=== PATIENT | female | born 1935 | race Caucasian/White ===

== ENCOUNTER 2017-09-19 13:03 | Inpatient (IN) ==
[2017-09-19] MEDS ORDERED: ALBUTEROL/IPRATROPIUM 2.5mg-0.5mg/3ml NEB AEROSOL ONE (13:34)
--- NOTE | 2017-09-19 13:38 | Emergency Department Report ---
SOB HPI - General Chief Complaint: Upper Respiratory Infection Stated Complaint: diff breathing and cough Time Seen by Provider: 09/19/17 13:23 Source: patient Mode of arrival: wheelchair Limitations: no limitations - History of Present Illness Pt presents with a cough and SOA that has increased over the last week. Pt saw her PCP last week and was given a Z pack which she completed. Pt is continuing to cough however is not able to get anything up. She denies recent chest pain, pedal edema, fever or chills. Pt was diagnosed with COPD about a year ago and uses a daily inhaler which she reports has not helped much. She comes to the ER from her PCP office who reported a "boderline low" SpO2. Initial SpO2 her was in the 60s on RA. Pt does not use supplemental O2 at home. MD Complaint: shortness of breath, cough Onset (ago): week(s) Severity: moderate Consistency/Duration: constant Relieving factors: nothing Exacerbating factors: exertion, movement, coughing Known history of: COPD Associated symptoms: denies other symptoms Treatment prior to arrival: bronchodilator (antibiotics) - Related Data Home oxygen amount: none Home Medications Medication Instructions Recorded Confirmed Amlodipine Besylate 5 mg PO DAILY #0 01/16/15 09/19/17 buPROPion HCl [Bupropion Xl] 150 mg PO BID #0 01/16/15 09/19/17 Carboxymethylcell/Hypromellose 1 drop BOTH EYES DAILY #0 10/24/15 09/19/17 [Genteal Gel Drops] L. Acidophilus/Pectin, [place] 1 tab PO DAILY #0 tab 10/24/15 09/19/17 [Acidophilus Caplet] Albuterol Sulfate [Ventolin Hfa] 2 puff ORAL INH Q4-6H PRN #0 01/05/16 09/19/17 inhaler Azithromycin [Azithromycin] 250 mg PO DAILY 09/19/17 09/19/17 Biotin 5,000 mcg PO DAILY 09/19/17 09/19/17 Calcium Carb/Mag Carb/Folic AC 1 each PO DAILY 09/19/17 09/19/17 [Magnebind 400 Rx Tablet] Cholecalciferol [Vit. D-3] 1,000 unit PO DAILY 09/19/17 09/19/17 Folic Acid 400 mcg PO DAILY 09/19/17 09/19/17 Levothyroxine Sodium 100 mcg PO DAILY 09/19/17 09/19/17 Loratadine 10 mg PO DAILY 09/19/17 09/19/17 Mometasone/Formoterol 100/5 2 puff INH BID 09/19/17 09/19/17 [DULERA 100/5mcg INHALER] Previous Rx's Medication Instructions Recorded Lisinopril 40 mg PO DAILY #30 tab 10/28/15 Allergies Allergy/AdvReac Type Severity Reaction Status Date / Time cephalexin Allergy Unknown Verified 09/19/17 13:27 dextromethorphan Allergy Unknown Verified 09/19/17 13:27 Review of Systems Constitutional: Reports: as per HPI Cardiovascular: Reports: as per HPI Respiratory: Reports: as per HPI PFSH Patient Stated Medical History Hypertension Yes Chronic Obstructive Pulmonary Yes Disease (COPD) Depression Yes Substance Use Disorder No Physical Exam - Limitations Limitations: no limitations - General General appearance: alert, in no apparent distress - Normal Exams: Head:: Normocephalic without trauma Eyes:: Pupils are PERRLA w/ EOMI Neck:: Full range of motion, without adenopathy Cardiovascular:: Regular rate and rhythm, without murmur or gallop, Pulses 2+ all extremities, capillary refill, <2 seconds all extremities Abdomen:: Bowel sounds positive, soft, non-tender, non-distended Musculoskeletal:: No tenderness, or deformity noted, good range of motion, all extremities Integumentary:: No rashes Neurological:: Patient is alert, and oriented, cranial nerves, motor/sensory/ cerebellar, exams w/o gross deficits, to observation Psychiatric:: Patient exhibits, appropriate attention, emotion and affect - Expanded Respiratory Exam Location: Left: decreased breath sounds, Right: decreased breath sounds, Upper: decreased breath sounds, Lower: decreased breath sounds Course Vital Signs Temperature 97.6 F 09/19/17 13:05 Pulse Rate 98 09/19/17 13:05 Respiratory Rate 20 09/19/17 13:05 Blood Pressure 176/76 H 09/19/17 13:05 Pulse Oximetry 62 L 09/19/17 13:05 Temperature 97.6 F 09/19/17 13:05 Pulse Rate 74 09/19/17 14:25 Respiratory Rate 12 09/19/17 14:42 Blood Pressure 124/66 09/19/17 14:25 Pulse Oximetry 96 09/19/17 14:42 Shortness of Breath/Dyspnea - [facility] Narrative Medical decision making narrative: During stay pt noted she was having some chest pressure. NTG was given with relief. Troponin resulted normal. EKG reviewed and discussed with Dr Ramirez and there were no new significant changes. All lab and X ray reviewed. Attempted to ween pt from O2 without success pt dropping to mid 80s on RA while at rest. Hospitalist called for admission. Admission discussed with pt and family who verbalize understanding - Differential Diagnosis Likely: acute exacerbation of chronic obstructive airways disease, congestive heart failure, community acquired pneumonia, pulmonary embolism - Lab Data Attestation: I reviewed the patient's lab results. Result diagrams: 09/19/17 13:59 09/19/17 13:59 Lab Results 09/19/17 09/19/17 09/19/17 Range/Units 13:59 13:59 13:59 WBC 7.4 (4.5-11.0) T/MM3 RBC 4.60 (4.00-5.20) M/MM3 Hgb 14.2 (12-16) GM/DL Hct 42.1 (36-46) % MCV 91.5 (80-100) UM3 MCH 30.9 (26-34) UUG MCHC 33.7 (31-37) GM/DL RDW Std Deviation 40.0 (36.9-50.2) FL Plt Count 238 (130-400) T/MM3 MPV 9.6 (9.4-12.4) UM3 Immature Gran % (Auto) 0.3 (0.0-0.5) % Neut % (Auto) 78.1 H (33-66) % Lymph % (Auto) 14.3 L (23-45) % [place] % (Auto) 6.9 (0-9.0) % Eos % (Auto) 0.1 (0-4) % Baso % (Auto) 0.3 (0-2) % Neut # (Auto) 5.8 (1.8-7.7) T/MM3 Lymph # (Auto) 1.1 (1-4.8) T/MM3 [place] # (Auto) 0.5 (0-0.8) T/MM3 Eos # (Auto) 0.0 (0-0.5) T/MM3 Baso # (Auto) 0.0 (0-0.2) T/MM3 Abs Immat Gran (auto) 0.02 (0.00-0.03) T/MM3 D-Dimer 181 (0-230) NG/ML Turbidity < 20 (0-20) Sodium 131 L (134-144) MEQ/L Potassium 4.1 (3.6-5) MEQ/L Chloride 87 L (98-107) MEQ/L Carbon Dioxide 35 H (22-30) MEQ/L Anion Gap 9 (5-15) MEQ/L BUN 19.0 H (7-17) MG/DL Creatinine 0.6 L (0.7-1.2) MG/DL GFR Calculation 96 BUN/Creatinine Ratio 32 H (6-26) RATIO Glucose 130 H (65-110) MG/DL Calculated Osmolality 257 L (261-280) MOSM/KG Calcium 9.2 (8.4-10.2) MG/DL Total Bilirubin 0.40 (0.20-1.30) MG/DL Icterus Index < 2 (0-7) AST 49 H (14-36) U/L ALT 57 H (9-52) U/L Alkaline Phosphatase 49 (38-126) U/L Troponin I < 0.012 (0-0.12) ng/ml B-Natriuretic Peptide 249 H (0-175) pg/mL Total Protein 7.2 (6.3-8.2) G/DL Albumin 4.1 (3.5-5.0) G/DL Globulin 3.1 (2.4-3.6) G/DL Albumin/Globulin Ratio 1.3 (1.1-2.2) RATIO Specimen Hemolysis < 15 (0-25) - Radiology Data Attestation: I reviewed the patient's radiology results. (per Dr Elliott read) - EKG Data EKG #1 EKG attestation: Yes: I reviewed and interpreted this EKG. EKG shows normal: sinus rhythm Rate: normal Rhythm: NSR [place] [facility]/QRS: LBBB When compared to previous EKG there are: no significant changes Interpretation: unchanged when compared to prior tracing (date) (discussed with Dr Ramirez per Dr Marie) Disposition Clinical Impression: COPD exacerbation Disposition: [address] [facility] Acute Care Condition: Improved Prescriptions: No Action Amlodipine Besylate 5 mg PO DAILY #0 L. Acidophilus/Pectin, [place] [Acidophilus Caplet] 1 tab PO DAILY #0 tab Carboxymethylcell/Hypromellose [Genteal Gel Drops] 1 drop BOTH EYES DAILY #0 Lisinopril 40 mg PO DAILY #30 tab Cholecalciferol [Vit. D-3] 1,000 unit PO DAILY Mometasone/Formoterol 100/5 [DULERA 100/5mcg INHALER] 2 puff INH BID Levothyroxine Sodium 100 mcg PO DAILY Azithromycin [Azithromycin] 250 mg PO DAILY Folic Acid 400 mcg PO DAILY Biotin 5,000 mcg PO DAILY Loratadine 10 mg PO DAILY buPROPion HCl [Bupropion Xl] 150 mg PO BID #0 Albuterol Sulfate [Ventolin Hfa] 2 puff ORAL INH Q4-6H PRN #0 inhaler PRN Reason: SHORTNESS OF AIR Calcium Carb/Mag Carb/Folic AC [Magnebind 400 Rx Tablet] 1 each PO DAILY Referrals: Reba Harris MD [Family Provider] - Time of Disposition: 16:09 - Seen By: midlevel
[2017-09-19] MEDS ORDERED: ASPIRIN 325 MG TABLET PO ONE (13:55)
[2017-09-19] MEDS ORDERED: NITROGLYCERIN 0.4 MG SUBLINGUAL TABLET SL ONE (13:56)
--- NOTE | 2017-09-19 14:30 | XRay Report ---
EXAM: XR chest 2V HISTORY: cough, hx COPD, low SpO2 COMPARISON: Prior chest x-ray dated 10/24/2015 FINDINGS: The heart is not enlarged and the mediastinum is not widened. The trachea is midline. The pulmonary vascularity is normal. The lung alejandro are hyperinflated with flattening of the hemidiaphragms There are mild increased interstitial markings that appear chronic but no acute consolidating infiltrates are seen and the costophrenic angles are clear. There is no evidence of a pneumothorax. The bony thorax shows mild to moderate degenerative changes in the mildly kyphotic dorsal spine. Postsurgical changes are seen under the right hemidiaphragm. IMPRESSION: 1. Chronic emphysematous lung changes. 2. No acute focal infiltrates. .
--- OUTSIDE RECORDS SUMMARY | 2017-09-19 14:47 | External Medical Summary | Continuity of Care Document ---
:1935 Author Organization [facility] Address [address] [place], [place] [id number] Phone Care Team Providers Name Role Phone Reba Harris MD Unavailable Unavailable Allergies, Adverse Reactions, Alerts Substance Reaction Severity Status CEPHALEXIN MONOHYDRATE Unknown Active DEXTROMETHORPHAN HBR Unknown Active Medications Medication Instructions Dosage Effective Dates Status Comments (start - stop) lisinopril 40 mg take 1 tablet by 40 MG - Active tablet oral route every day amlodipine 5 mg take 1 tablet by 5 MG - Active tablet oral route every day levothyroxine 100 mcg take 1 tablet by 100 MCG - Active tablet oral route every day bupropion HCl SR 150 take 1 tablet by 150 MG - Active mg tablet,12 hr oral route 2 times sustained-release every day alendronate 70 mg take 1 tablet by 70 MG - Active tablet oral route every week in the morning, at least 30 min before first food, beverage, or medication of day Dulera 100 mcg-5 inhale 2 puff by Not Available - Active mcg/actuation HFA inhalation route 2 aerosol inhaler times every day in the morning and evening Ventolin HFA 90 inhale 2 puff by Not Available - Active mcg/actuation aerosol Inhalation route inhaler every 4 - 6 hours as needed Vitamin D3 5,000 unit take 1 by Oral Not Available - Active tablet route every day Acidophilus capsule - Active GenTeal Gel 0.25 - Active %-0.3 % eye liquid gel drops biotin 5,000 mcg - Active disintegrating tablet calcium carbonate 500 take 1 by Oral Not Available - Active mg calcium (1,250 mg) route every day tablet Problems Condition Effective Dates (start - stop) Clinical Status Essential (primary) hypertension Other ovarian cyst, right side Hypertension - Active Chronic Obstructive Pulmonary Disease Active Depression Active Hyperlipidemia Active Simple Ovarian Cyst Active Procedures Procedure Date Unknown Results Test Name Date and Time Measure Units Reference Range Abnormal Flag Comments Unknown Advance Directives Directive Yes / No Effective Date File Name Unknown Encounters Encounter Practice Location Reason(s) Diagnoses Date Provider Care Team Description For Visit Members Pao Leach Jun-2 Kash [facility] [address] [place], [address], , [place] [address], [place], [id number], [place], [id number] tel: , [facility] tel: [phone] Pao Leach Essential Kash Referring In Wom[facility] (primary) [place]. 700 Provider: marlon [place]Other 7 [facility] Box ovarian cyst, [address], right side , [place], [facility] [id number], [place], [place] [address], [id number] [place], tel: , [facility], tel: [phone] tel:[phone] Family History Family Member Diagnosis Age At Onset Father Colon Cancer Mother Brain Stem Hemm Immunizations Vaccine Date Status Comments Unknown Payers Payer name Insurance type Covered republican ID Authorization(s) Medicare MB [id number] [facility] Plan 65 BL [id number] Social History Type Description Quantity Date Captured Unknown Vital Signs Date / Height Weight BMI Pulse Blood Temperature Respiratory Body Head BMI Time: Rate Pressure Rate Surface Circumference percentile Area Unknown Chief Complaint And Reason For Visit Unknown Chief Complaint And Reason For Visit Reason For Referral Reason For Referral Unknown Plan Of Care Date Type Action Status Unknown. Date Type Problem Goal Intervention Status Start Date Unknown. History Of Present Illness Encounter Date Complaint History Of Present Illness This patient has no known history of present illness Functional Status Encounter Date Functional Assessment Cognitive Assessment Unknown Medications Administered Medication Instructions Dosage Effective Dates (start - stop) Status Comments Drug Treatment Unknown Instructions Date Instruction Additional Information Unknown
--- OUTSIDE RECORDS SUMMARY | 2017-09-19 14:47 | External Medical Summary | Continuity of Care Document ---
:1935 Author Organization [facility] Address [address] [place], [place] [id number] Phone Care Team Providers Name Role Phone [...] Members Pao Leach Jun-2 [facility] [address] [place], Medical [address], , [place] [address], [place], [id number], [place], [id number] tel: , [facility] tel: [phone] Pao Leach Essential Kash Referring In Womens (primary) [place]. 700 Provider: marlon CordobaOther 7 [facility] Box ovarian cyst, [address], right side , [place], [facility], [facility] [id number], [place], [place] [address], [id number] [place], tel: , [facility], tel: [phone]. [phone] tel:[phone] Family History Family Member Diagnosis Age At Onset Father Colon Cancer Mother Brain Stem Hemm Immunizations Vaccine Date Status Comments Unknown Payers Payer name Insurance type Covered libertarian ID Authorization(s) Medicare MB [id number] [facility] Plan 65 BL [id number] Social History Type Description Quantity Date Captured [...]
--- OUTSIDE RECORDS SUMMARY | 2017-09-19 14:47 | External Medical Summary | Continuity of Care Document ---
:1935 Author Organization [facility] Address [address] [place], [place] [id number] Phone Care Team Providers Name Role Phone [...] Simple Ovarian Cyst Active Procedures Procedure Date Office/outpatient visit,thelma segura Results Test Name Date and Time Measure Units Reference Range Abnormal Flag Comments Unknown Advance Directives Directive Yes / No Effective Date File Name Unknown Encounters Encounter Practice Location Reason(s) Diagnoses Date Provider Care Team Description For Visit Members Office/outpat Associates [place] Essential Kash Referring ient In [facility] (primary) [place]. 700 Provider: visit,[facility] MARCOS, hypertensionOther 7 Medical [place] [address] ovarian cyst, [address], right side , [place] [address] [place], Medical [place], [facility] [id number], [place], [address], [id number] [place], tel: , . [place], [id number] tel: [phone]. [phone] tel:[phone] Family History Family Member Diagnosis Age At Onset Father Colon Cancer Mother Brain Stem Hemm Immunizations Vaccine Date Status Comments Unknown Payers Payer name Insurance type Covered constitution party ID Authorization(s) Medicare MB [id number] [facility] Plan 65 BL [id number] Social History Type Description Quantity Date Captured Alcohol Use Details Unknown Caffeine Use Details Unknown Tobacco Use Status Smoking Status Former smoker Smoking Tobacco Use Cigarette: Years Used 10 Cigarette: 0.5 Cigarettes per day, Pack Year: 0.25 Details Vital Signs Date / Height Weight BMI Pulse Blood Temperature Respiratory Body Head BMI Time: Rate Pressure Rate Surface Circumference percentile Area 64.50 114.60 . in lbs 7 1:08 kg/m PM eter (2) Chief Complaint And Reason For Visit Unknown [...]
--- OUTSIDE RECORDS SUMMARY | 2017-09-19 14:47 | External Medical Summary | Continuity of Care Document ---
:1935 Author Organization [facility] Support Name Relationship Address Phone JIM JAY DO Unavailable [address] Unavailable [address] [place] [address] FELICITY RODRÍGUEZ MD Unavailable [facility] Unavailable [address] [place] [address] [place] [address] JAMES BUTCHER Unavailable [address] [place] [address] Insurance Providers Payer Name Policy Number Subscriber Name Relationship Medicare [id number] Tiffany Valentino 19 Self Blue [employer] Select Plan 65 [id number] Tiffany Valentino 18 Self Advance Directives Directive Response Recorded Date/Time Ordered Resuscitation Status Full Code, unverified 01/16/15 3:32pm Resuscitation Documents on File No 01/16/15 3:15pm Problems No known problems or medical conditions. Medications Medication Dose Route Sig Days/Qty Instructions Order Discontinued Status Date Date [Azythromycin] 09/18/12 Discontinu 09 ed Alendronate 1 Tab PO WEEKLY 09/18/12 Discontinu Sodium 09 ed Amlodipine 1 Tab PO DAILY 09/25/12 Discontinu Besylate 09 ed Sertraline Hcl 50 Mg PO DAILY 09/25/12 Discontinu 12 ed Hydrochlorothia 25 Mg PO DAILY 09/25/12 Discontinu zide 12 ed Potassium 10 PO DAILY 09/25/12 Discontinu Chloride Meq 12 ed Pravastatin 40 Mg PO DAILY 09/25/12 Discontinu Sodium 12 ed Lactobacillus 1 Cap PO DAILY 09/25/12 Discontinu Acidophilus 12 ed Alendronate 70 Mg PO WEEKLY 01/16/ Active Sodium 15 LA/Lactobac 1 Cap PO DAILY 01/16/ Active Saliv/Bb/S.ther 15 mop Amlodipine 5 Mg PO DAILY 01/16/ Active Besylate 15 Multivitamin 1 Tab PO DAILY 04/09/ Active 15 Levothyroxine 1 Tab PO BEFORE Once daily Sodium BREAKFAS before 15 T breakfast Cholecalciferol 1 Tab PO DAILY (Vitamin D3) 15 Bupropion HCl 150 PO TWICE A 01/16/ Mg DAY 15 Furosemide 10 Mg PO DAILY 15 Calcium Carb 1 Tab PO DAILY Active & 15 Cit/Vitamin D3 Lisinopril 1 Tab PO DAILY 15 Melatonin/Pyrid 5 Mg PO BEDTIME oxine HCl (B6) 15 Social History Social History Problem Response Recorded Date/Time Chewing Tobacco Status No 01/17/2015 8:05am Hx Substance Use No 01/17/2015 8:05am Hx Alcohol Use No 01/17/2015 8:05am Has the pt used tobacco in the last 12 months No 01/17/2015 8:05am Query Response Start Date Stop Date Smoking Status Former smoker Hospital Discharge Instructions No hospital discharge instructions. Plan of Care No plan of care. Functional Status No functional status results. Allergies, Adverse Reactions, Alerts Allergen Type Severity Reaction Status Last Updated Cephalexin Allergy Unknown Active 01/16/15 Dextromethorphan Allergy Unknown Active 01/16/15 Immunizations Name Given Type Hx Influenza Vaccination Y FALL 2013 Historical Hx Pneumococcal Vaccination Y WITHIN PAST 5 YEARS Historical Hx Influenza Vaccination Y FALL 2013 Historical Vital Signs Acute Vital Signs Vital Response Date/Time Temperature (Fahrenheit) 97.2 deg F (96.8 - 99.1) Temperature (Calculated Celsius) 36.47156 degrees C (36.0 - 37.3) Temperature Source Temporal Pulse Rate (adult) 70 bpm (60 - 100) Respiratory Rate 20 breaths/min (10 - 20) O2 Sat by Pulse Oximetry 97 % (90 - 100) Oxygen Delivery Method Room Air Blood Pressure 140/71 mm Hg Blood Pressure Source Automatic Cuff Height 5 ft 3.75 in Weight 113 lb Body Mass Index 19.0 kg/m^2 Results Test Source Date Result Interp. Ref. Comments Range Alanine September 46 U/L N 9-52 Aminotransferase 2011 (ALT/SGPT) 5:02am Albumin September 2.9 G/DL L 3.5-5.0 2011 5:02am Albumin/Globulin September 1.3 RATIO N 1.1-2.2 Ratio 2011 5:02am Alkaline Kana 46 U/L N 38-126 Phosphatase 2011 5:02am Anion Gap Kana 6 MEQ/L N 5-15 CALL 2011 [id number] 5:40am Aspartate Amino Kana 45 U/L H 14-36 Transf (AST/SGOT) 2011 5:02am BUN/Creatinine September 16 RATIO N 6-26 CALL Ratio 2011 [id number] 5:40am Basophils # (Auto) Kana 0.0 T/MM3 N 0-0.2 2011 4:43am Basophils # Kana 0.1 T/MM3 N 0-0.2 (Manual) 2011 4:50am Basophils % Kana 1.0 % N 0-2 (Manual) 2011 4:50am Basophils (%) Kana 0.6 % N 0-2 (Auto) 2011 4:43am Blood Urea Nitrogen September 8.0 MG/DL N 7-17 CALL 2011 [id number] 5:40am Calcium Level September 8.7 MG/DL N 8.4-10. CALL 2011 2 [id number] 5:40am Calculated Kana 253 MOSM/KG L 261-280 CALL Osmolality 2011 [id number] 5:40am Carbon Dioxide Kana 34 MEQ/L H 22-30 CALL Level 2011 [id number] 5:40am Chloride Level Kana 92 MEQ/L L 98-107 CALL 2011 [id number] 5:40am Conjugated Kana 0.00 MG/DL N 0.00-0. Bilirubin 2011 30 8:00am Creatinine September 0.5 MG/DL L 0.7-1.2 CALL 2011 [id number] 5:40am Eosinophils # Kana 0.5 T/MM3 N 0-0.5 (Auto) 2011 4:43am Eosinophils # Kana 0.2 T/MM3 N 0-0.5 (Manual) 2011 4:50am Eosinophils % Kana 3.0 % N 0-4 (Manual) 2011 4:50am Eosinophils (%) September 8.0 % H 0-4 (Auto) 2011 4:43am Globulin Kana 2.3 G/DL L 2.4-3.6 2011 5:02am Glucose Level September 91 MG/DL N 65-110 CALL 2011 [id number] 5:40am Hematocrit Kana 37.6 % N 36-46 2011 4:43am Hemoglobin Kana 13.2 GM/DL N 12-16 2011 4:43am Lymphocytes # Kana 1.0 T/MM3 N 1-4.8 (Auto) 2011 4:43am Lymphocytes # Kana 1.6 T/MM3 N 1-4.8 (Manual) 2011 4:50am Lymphocytes % Kana 27.0 % N 23-45 (Manual) 2011 4:50am Lymphocytes (%) September 16.1 % L 23-45 (Auto) 2011 4:43am Magnesium Level September 1.9 MG/DL N 1.6-2.3 2011 4:42am Mean Corpuscular Kana 31.4 UUG N 26-34 Hemoglobin 2011 4:43am Mean Corpuscular Kana 35.1 GM/DL N 31-37 Hemoglobin Concent 2011 4:43am Mean Corpuscular Kana 89.5 UM3 N 80-100 Volume 2011 4:43am Mean Platelet Kana 9.5 UM3 N 9.4-12. Volume 2011 4 4:43am Monocytes # (Auto) Kana 0.6 T/MM3 N 0-0.8 2011 4:43am Monocytes # Kana 0.5 T/MM3 N 0-0.8 (Manual) 2011 4:50am Monocytes % September 9.0 % N 0-9.0 (Manual) 2011 4:50am Monocytes (%) September 8.8 % N 0-9.0 (Auto) 2011 4:43am Neutrophils # September 4.3 T/MM3 N 1.8-7.7 (Auto) 2011 4:43am Neutrophils # Kana 3.7 T/MM3 N 1.8-7.7 (Manual) 2011 4:50am Neutrophils % Kana 60.0 % N 33-66 (Manual) 2011 4:50am Neutrophils (%) September 66.2 % H 33-66 (Auto) 2011 4:43am Platelet Count September 196 T/MM3 N 130-400 2011 4:43am Potassium Level September 3.7 MEQ/L N 3.6-5 CALL 2011 [id number] 5:40am RDW Standard September 41.3 FL N 36.9-50 Deviation 2011 .2 4:43am Red Blood Count September 4.20 M/MM3 N 4.00-5. 142011 4:43am Sodium Level September 132 MEQ/L L 134-144 CALL 2011 [id number] 5:40am Thyroid Stimulating September 7.96 MIU/L H 0.47-4. Hormone (TSH) 2011 8:00am Total Bilirubin September 0.50 MG/DL N 0.20-1. 132011 5:02am Total Protein September 5.2 G/DL L 6.3-8.2 2011 5:02am Troponin I September < 0.012 ng/ml 0-0.12 2011 8:00am Unconjugated September 0.80 MG/DL N 0.00-1. Bilirubin 2011 8:00am Urine Amorphous September Many - Has specimen Phosphates 2011 been 8:40am collected/obta ined? Y Urine Bacteria September 09+ H - 2011 1:15pm Urine Bilirubin September Negative - 2011 1:15pm Urine Blood September 4+ H - 2011 1:15pm Urine Collection Kana Voided - Type 2011 1:15pm Urine Color September Yellow - 2011 1:15pm Urine Culture September Cult reflexed - Indicated 2011 &setup 1:15pm Urine Glucose (UA) September Negative - 2011 1:15pm Urine Hyaline Casts September 0-1 /LPF - Has specimen 2011 been 8:40am collected/obta ined? Y Urine Ketones September Negative - 2011 1:15pm Urine Leukocyte September 2+ H - Esterase 2011 1:15pm Urine Nitrite September Negative - 2011 1:15pm Urine Protein September Trace H - 2011 1:15pm Urine RBC September 30-50 /HPF H - 2011 1:15pm Urine Specific Kana 1.020 - [place] 2011 1:15pm Urine Squamous September Few - Has specimen Epithelial Cells 2011 been 8:40am collected/obta ined? Y Urine Turbidity September Slt cldy - 2011 1:15pm Urine Urobilinogen September Normal EU/DL - 2011 1:15pm Urine WBC September 20-30 /HPF H - 2011 1:15pm Urine pH September 6.0 - 2011 1:15pm Vitamin B12 Level September > 1000 PG/ML H 239-931 2011 6:00am White Blood Count September 6.5 T/MM3 N 4.5-11. 14, 2011 0 4:43am Glucometer September 84 mg/dL N 65-110 2011 11:32pm Lab Scanned Report September LAB TEST FORM - 2012 REQUEST [id number] 9:22pm Glomerular September 120 - CALL Filtration Rate 2011 [id number] Calc 5:40am Immature September 0.02 T/MM3 N 0.00-0. Granulocyte # 2011 03 (Auto) 4:43am Immature September 0.3 % N 0.0-0.5 Granulocyte % 2011 (Auto) 4:43am YV-Jvj-L-Type September 244 PG/ML H 0-175 Rule in cut points: <50 years old=450; Natriuretic Peptide 2011 50-75 years old=900; 8:00am >75 years old=1800; When utilizing ProBNP rule-in cut points, adjustment for impaired renal function is typically not required. Gram Stain Abscess September 24, 2013 7:00pm Urine Culture Urine, September Staphylococcus Clean 2011 Epidermidis Catch 3:49pm Voided Procedures Procedure Status Date Provider(s) Colonoscopy with polypectomy and biopsy completed 01/17/15 FELICITY RODRÍGUEZ MD
--- OUTSIDE RECORDS SUMMARY | 2017-09-19 14:47 | External Medical Summary | Continuity of Care Document ---
:1935 Author Organization [facility] Address [address] [place], [place] [id number] Phone Care Team Providers Name Role Phone [...] [facility] (primary) Reynold. 700 Provider: visit,[facility] MARCOS, hypertensionOther [address] [place] [address] ovarian cyst, Center [address], [address], right side , [address] [place], [address], Medical [place], [facility] [id number], [place], [address], [id number] [place], tel: , . [place], [id number] tel: [phone] tel:[phone] Family History Family Member Diagnosis Age At Onset Father Colon Cancer Mother Brain Stem Hemm Immunizations Vaccine Date Status Comments Unknown Payers Payer name Insurance type Covered green party ID Authorization(s) Medicare MB [id number] [facility] Plan 65 BL [id number] Social History Type Description Quantity Date Captured [...]
--- OUTSIDE RECORDS SUMMARY | 2017-09-19 14:47 | External Medical Summary | Continuity of Care Document ---
:1935 Author Organization [facility] Allergies Active Description Code Type Severity Reaction Onset Reported/ Identified Relationship Clinical to Patient Status Yes CEPHALEXIN 6830 1 N/A N/A MONOHYDRATE Yes DEXTROMETHOR 1653 1 N/A N/A DAWN HBR Yes No Known 48704 3 N/A N/A Drug 0 Allergies Medications Problems Date Dx Attending Type Code Diagnosis Diagnosed By Coded 06/07/2017 Reynold Hewitt I10 Essential (primary) hypertension 06/07/2017 Reynold Hewitt I10 Essential (primary) hypertension Procedures Results Encounters ACCT No. Visit Discharge Status Pt. Type Provider Facility Loc./Unit Complaint Date/Time [id number] 07/06/2017 07/06/2017 [facility] Outpatient Kash, 13:21:00 23:59:59 Reynold Ramirez [id number] 07/06/2017 07/06/2017 [facility] Outpatient Kash, 10:07:00 23:59:59 Reynold Ramirez [id number] 06/07/2017 06/07/2017 [facility] Outpatient Kash, 13:15:00 23:59:59 Reynold Ramirez
[2017-09-19] MEDS ORDERED: BENZONATATE 200 MG CAPSULE PO PRN (16:39)
--- NOTE | 2017-09-19 17:14 | History & Physical Report ---
History of Present Illness Date: 09/19/17 Chief complaint: cough, shortness of breath HPI: Patient is a pleasant 82-year-old female who presented to see her primary care provider, Dr. Terri jason in [place] today for evaluation of ongoing cough. He is had a cough for the past 2 weeks. She was seen last week in the clinic and was prescribed a Z-Wilfrid. She continued to have a cough. This presented for reevaluation today. She was found to be hypoxic with reported saturations in the 60s. She was then directed to the emergency room for acute evaluation and treatment. While in the emergency room, laboratory studies, chest x-ray were obtained. CBC found to be unremarkable, chemistry panel revealed mild hyponatremia with sodium 131, however potassium normal at 4.1, LFTs slightly elevated, troponin negative, and proBNP 249. D-dimer 181. Patient did report having some chest pressure and a twelve-lead EKG was obtained that did reveal sinus rhythm, questionable ST changes. Dr. Gamble was contacted and EKG was unchanged from previous. Chest x-ray revealed chronic COPD like changes. No acute infiltrate or edema. He can continue to be hypoxic requiring 2 liters of oxygen by nasal cannula to maintain adequate saturations. She also was continued to be to Between 28 and 40 breaths per minute. Given these findings, Hospital services were contacted and accepted patient for inpatient admission for further evaluation and treatment. It is expected that her stay will be greater than 2 overnights. Review of Systems All systems PM: 10-point ROS was reviewed, no additional remarkable complaints except - Constitutional Constitutional: Present: fatigue - Respiratory Respiratory: Present: as per HPI, cough, dyspnea, dyspnea on exertion, wheezing [facility] Medical History COPD Hypertension Hypothyroidism History of tobacco use Surgical History: Tonsillectomy. Cholecystectomy. D&C. Bilateral cataracts. Vein stripping Family History: Noncontributory - Social History Smoking status: Former smoker Social history: PCP Dr Tram Harris Medications Home Medications Medication Instructions Recorded Confirmed Type Amlodipine Besylate 5 mg PO DAILY #0 01/16/15 09/19/17 History buPROPion HCl [Bupropion Xl] 150 mg PO BID #0 01/16/15 09/19/17 History Carboxymethylcell/Hypromellose 1 drop BOTH EYES DAILY #0 10/24/15 09/19/17 History [Genteal Gel Drops] L. Acidophilus/Pectin, Ivey 1 tab PO DAILY #0 tab 10/24/15 09/19/17 History [Acidophilus Caplet] Albuterol Sulfate [Ventolin Hfa] 2 puff ORAL INH Q4-6H PRN #0 01/05/16 09/19/17 History inhaler Azithromycin [Azithromycin] 250 mg PO DAILY 09/19/17 09/19/17 History Biotin 5,000 mcg PO DAILY 09/19/17 09/19/17 History Calcium Carb/Mag Carb/Folic AC 1 each PO DAILY 09/19/17 09/19/17 History [Magnebind 400 Rx Tablet] Cholecalciferol [Vit. D-3] 1,000 unit PO DAILY 09/19/17 09/19/17 History Folic Acid 400 mcg PO DAILY 09/19/17 09/19/17 History Levothyroxine Sodium 100 mcg PO DAILY 09/19/17 09/19/17 History Loratadine 10 mg PO DAILY 09/19/17 09/19/17 History Mometasone/Formoterol 100/5 2 puff INH BID 09/19/17 09/19/17 History [DULERA 100/5mcg INHALER] Allergies Allergy/AdvReac Type Severity Reaction Status Date / Time cephalexin Allergy Unknown Verified 09/19/17 13:27 dextromethorphan Allergy Unknown Verified 09/19/17 13:27 Exam Vital Signs: Temperature 97.6 F 09/19/17 13:05 Pulse Rate 72 09/19/17 17:00 Respiratory Rate 28 H 09/19/17 17:00 Blood Pressure 141/66 H 09/19/17 17:00 Pulse Oximetry 94 09/19/17 17:00 Telemetry Rhythm: Sinus Rhythm - Constitutional Present: mild distress, well nourished, well developed - Routine HEENT Exam Eye: Present: EOMI ENT: Present: mucous membranes moist, dentition normal - Routine Respiratory Exam Present: wheezes Comments: Course breath sounds bilateral bases - Routine Cardiovascular Exam Present: RRR, S1, S2. Absent: murmur - Routine Abdominal Exam Present: soft, normoactive bowel sounds, non distended. Absent: tenderness - Routine Extremities Exam Present: no edema, pulses intact, normal capillary refill - Routine Back/Spine/Pelvis Exam Back/Spine: Present: full ROM - Routine Skin Exam Present: intact, dry, warm - Routine Neurological Exam Present: alert, oriented X3, CN II-XII intact, moving all extremities - Routine Psychiatric Exam Present: normal affect, cooperative Results - Labs CBC & Chem 7: 09/19/17 13:59 09/19/17 13:59 Assessment and Plan (1) COPD exacerbation Current visit: Yes Status: Acute (2) Respiratory failure with hypoxia Current visit: Yes Status: Acute Assessment and Plan: Impression Acute COPD exacerbation Acute risk for failure with hypoxia-present on admission requiring 2 liters Hyponatremia- POA- 131 Elevated LFTs- POA Hypertension Hypothyroidism Former tobacco use Plan Admit patient to inpatient status under the care of Dr. Sue covering hospitalist for hypoxia with COPD exacerbation Will obtain viral respiratory panel to rule out viral etiology given upper respiratory congestion, coughing. Initiate IV Levaquin for antimicrobial coverage. Given coarse breath sounds with hypoxia. Obtain Sputum culture EKG reviewed with cardiology while in the ER Reported to be unchanged. Aspirin was given in the emergency room. Patient feels that chest pressure is related to coughing and dyspnea. Given chest pressure will obtain serial troponin x3 and monitor on cardiac telemetry Scheduled DuoNeb 4 times a day and Pulmicort twice a day. Acapella and scheduled Mucinex to help mobilize secretions. Continue oxygen therapy to maintain adequate saturations. Tessalon Perles as needed for coughing Given underlying COPD will place patient on Solu-Medrol 125 mg IV every 8 hours for pulmonary inflammation SCD to lateral extremity for DVT prophylaxis Patient does wish to be a full code at this orders written. Further orders and plan of care discussed with attending, At time of discharge medical care will return to primary care provider, Dr. Tram Harris 09/19/17 Sylvester Sue MD Pt is seen in ED with dyspnea and cough for nearly 2 weeks. Given Z pack last week with no improvement. Today seen in clinic and forwarded to ED with low oxygen sats. Sats in ED near 60% ORA. Workup showed normal wbc and essentially neg cxr. Pt did have some chest pressure with todays ED visit. EKG suspicious for ST elevation. Dr Gamble contacted and compared with old ekg, noted Bundle branch block. Angiogram in 2016 showed 40% occluded LAD. PMHx, Med, ALL, Soc, Surg hx reviewed as above. ROS, 10 sys review neg except for above. Labs reviewed. Exam CV-RRR Lungs-diminished breath sounds with wheeze on exp Abd-+bs, nt , no mass ext- no cce Assessment: COPD exacerbation with sig hypoxemia Hyponatremia Chest pain-?cardiac HTN Plan O2 supplementation, Levaquin IV for assumptive pneumonia. Follow CXR over next 48 hours for possible blossoming pneumonia. Viral resp panel pending. Serial cardiac labs. Consult cardiology if trop elevates. Dr Gamble aware. IV solumedrol and resp tx. Repeat cxr and labs in am. Sylvester Sue MD DVT Prophylaxis: SCD's Resuscitation Status: Full Code - Time spent with patient Time with patient PN: 35 minutes Coordination of Care: >50% of visit spent providing counseling/coordination of care Hospital Course Summary Disclaimer: The visit summary below is not to be considered part of the above Progress Note. Hospital Course: 09/19/17 17:51 Assessment: COPD exacerbation with sig hypoxemia Hyponatremia Chest pain-?cardiac HTN Plan O2 supplementation, Levaquin IV for assumptive pneumonia. Follow CXR over next 48 hours for possible blossoming pneumonia. Viral resp panel pending. Serial cardiac labs. Consult cardiology if trop elevates. Dr Gamble aware. IV solumedrol and resp tx. Repeat cxr and labs in am. Sylvester Sue MD
[2017-09-19] MEDS: ALBUTEROL/IPRATROPIUM 2.5mg-0.5mg/3ml NEB AEROSOL SCH ×2 (17:41→20:31)
[2017-09-19] MEDS: METHYLPREDNISOLONE SOD SUCC 125mg/2ml INJECTION IVP SCH (18:02)
[2017-09-19] MEDS: LEVOFLOXACIN PB 500 MG/100 ML BAG IV SCH (18:02)
[2017-09-19] MEDS: BUDESONIDE INH.SOLN 0.5mg/2ml NEB AEROSOL SCH (20:31)
[2017-09-19] MEDS: GUAIFENESIN 400MG TABLET PO SCH (21:05)
[2017-09-19] MEDS ORDERED: LIDOCAINE AEROSOL PRN (22:17)
[2017-09-19] MEDS: GUAIFENESIN/CODEINE 5ml ORAL LIQUID PO PRN (22:31)
[2017-09-20] MEDS: METHYLPREDNISOLONE SOD SUCC 125mg/2ml INJECTION IVP SCH ×3 (00:51→18:38)
[2017-09-20] MEDS: SALINE FLUSH 10ml SYRINGE IVF PRN (00:59)
[2017-09-20] MEDS: BUDESONIDE INH.SOLN 0.5mg/2ml NEB AEROSOL SCH ×2 (07:21→19:33)
[2017-09-20] MEDS: ALBUTEROL/IPRATROPIUM 2.5mg-0.5mg/3ml NEB AEROSOL SCH ×4 (07:22→19:33)
[2017-09-20] MEDS: GUAIFENESIN 400MG TABLET PO SCH ×3 (08:51→20:38)
[2017-09-20] MEDS ORDERED: MAGNESIUM OXIDE 400 MG TABLET PO SCH (12:00)
[2017-09-20] MEDS: LISINOPRIL 40 MG TABLET PO SCH (12:44)
[2017-09-20] MEDS: LEVOTHYROXINE 100 MCG TABLET PO SCH (12:44)
[2017-09-20] MEDS: AMLODIPINE 5 MG TABLET PO SCH (12:44)
[2017-09-20] MEDS: LORATADINE 10 MG TABLET PO SCH (12:45)
[2017-09-20 15:02] VITALS: BMI 19.3
--- NOTE | 2017-09-20 15:07 | Progress Note ---
<Marisa Novoa V - Last Filed: 09/20/17 15:00> - Date 09/20/17 Subjective: Tiffany is seen in follow up today. She overall feels that her breathing is better and coughing is much improved. Currently on 3.5 liters of oxygen by nasal cannula. Appetite good, no difficulty with urination. She is concerned about chronic hyponatremia. In reviewing old chart, Sodium was down to 108 in 2011. It appears that she chronically has hyponatremia 125-130. Objective Vital signs: Temperature 96.7 F L 09/20/17 07:55 Pulse Rate 79 09/20/17 10:51 Respiratory Rate 16 09/20/17 12:04 Blood Pressure 157/88 H 09/20/17 07:55 Pulse Oximetry 93 09/20/17 12:04 Height/Weight/BMI: Height 1.63 m Weight 51.2 kg Body Mass Index 19.1 - Constitutional Present: no acute distress, well nourished, well developed - Routine HEENT Exam Eye: Present: EOMI ENT: Present: mucous membranes moist, dentition normal - Routine Respiratory Exam Present: diminished air movement (diminished). Absent: wheezes - Routine Cardiovascular Exam Present: RRR, S1, S2. Absent: murmur - Routine Abdominal Exam Present: soft, normoactive bowel sounds, non distended. Absent: tenderness - Routine Extremities Exam Present: full ROM, normal capillary refill - Routine Back/Spine/Pelvis Exam Back/Spine: Present: full ROM - Routine Skin Exam Present: intact, dry, warm - Routine Neurological Exam Present: alert, oriented X3, CN II-XII intact, moving all extremities - Routine Lymphatic Exam Lymphatic: Absent: adenopathy - Routine Psychiatric Exam Present: normal affect, cooperative Results - Labs CBC & Chem 7: 09/20/17 05:58 09/20/17 05:58 Assessment and Plan (1) COPD exacerbation Current visit: Yes Status: Acute (2) Respiratory failure with hypoxia Current visit: Yes Status: Acute Assessment and Plan: Impression Acute COPD exacerbation Positive Human Metapneumovirus Acute risk for failure with hypoxia-present on admission requiring 2 liters Hyponatremia- POA- 131 Elevated LFTs- POA Hypertension Hypothyroidism Former tobacco use Plan Overall breathing of it appears to be improved. Discussed diagnosis of hematoma. Melanoma virus. Continue with symptomatic treatment including scheduled nebulizers, cough suppression. Intake is on IV Levaquin for antimicrobial coverage. Further episodes of chest pain, serial troponin remained undetectable. Did review old records, patient chronically has hyponatremia was down to 108 at one point in 2011. It appears that her baseline is 125-130 Asked nursing staff to obtain sputum culture. Continue with scheduled Solu-Medrol, will decrease to 62.5 grams every 8 hrs as pulmonary inflamation has greatly improved. Today's to require oxygen to maintain saturations. Will work on weaning down as able. PT and OT consult placed for tomorrow morning. This patient does reside independently. Case discussed with attending, Hospital Course Summary Disclaimer: The visit summary below is not to be considered part of the above Progress Note. Hospital Course: 09/19/17 17:51 Assessment: COPD exacerbation with sig hypoxemia Hyponatremia Chest pain-?cardiac HTN Plan O2 supplementation, Levaquin IV for assumptive pneumonia. Follow CXR over next 48 hours for possible blossoming pneumonia. Viral resp panel pending. Serial cardiac labs. Consult cardiology if trop elevates. Dr Gamble aware. IV solumedrol and resp tx. Repeat cxr and labs in am. Sylvester Sue MD 09/20/17 Plan Overall breathing of it appears to be improved. Discussed diagnosis of hematoma. Melanoma virus. Continue with symptomatic treatment including scheduled nebulizers, cough suppression. Intake is on IV Levaquin for antimicrobial coverage. Further episodes of chest pain, serial troponin remained undetectable. Did review old records, patient chronically has hyponatremia was down to 108 at one point in 2011. It appears that her baseline is 125-130 Asked nursing staff to obtain sputum culture. Continue with scheduled Solu-Medrol, will decrease to 62.5 grams every 8 hrs as pulmonary inflamation has greatly improved. Today's to require oxygen to maintain saturations. Will work on weaning down as able. PT and OT consult placed for tomorrow morning. This patient does reside independently. Case discussed with attending, <Sylvester Sue E - Last Filed: 09/20/17 16:07> - Date 09/20/17 Objective Vital signs: Temperature 96.7 F L 09/20/17 07:55 Pulse Rate 79 09/20/17 10:51 Respiratory Rate 12 09/20/17 15:18 Blood Pressure 157/88 H 09/20/17 07:55 Pulse Oximetry 87 L 09/20/17 15:42 Height/Weight/BMI: Height 1.63 m Weight 51.2 kg Body Mass Index 19.3 Results - Labs CBC & Chem 7: 09/20/17 05:58 09/20/17 05:58 Assessment and Plan (1) COPD exacerbation Current visit: Yes Status: Acute (2) Respiratory failure with hypoxia Current visit: Yes Status: Acute Assessment and Plan: 09/20/2017 Pt seen and evaluated today with Marisa Novoa APRN IMPRESSION Hyponatremia COPD exacerbation -- +Human Metapneumovirus Hypoxemia HTN Elevated LFTs- POA Hypothyroidism PLAN Pt is improving with IV steroid (solumedrol 62.5mg q 8 hours) and IV antibiotic (Levaquin). Hyponatremia slowly improving, but review of chart and discussion with pt imply chronic hyponatremia. Previous Na as low as 108, typically seems to run around 125. Continue with RT support and duoneb. PT/OT consult. wean O2 as tolerated. Review in am. Sylvester Sue MD Hospital Course Summary Disclaimer: The visit summary below is not to be considered part of the above Progress Note.
[2017-09-20] MEDS: LEVOFLOXACIN PB 500 MG/100 ML BAG IV SCH (18:37)
[2017-09-20] MEDS: GUAIFENESIN/CODEINE 5ml ORAL LIQUID PO PRN (20:38)
[2017-09-20] MEDS: BuPROPion XL 150mg (24HR) TABLET PO SCH (20:38)
[2017-09-21] MEDS: METHYLPREDNISOLONE SOD SUCC 125mg/2ml INJECTION IVP SCH ×2 (01:19→08:33)
[2017-09-21] MEDS: BUDESONIDE INH.SOLN 0.5mg/2ml NEB AEROSOL SCH ×2 (07:29→19:12)
[2017-09-21] MEDS: ALBUTEROL/IPRATROPIUM 2.5mg-0.5mg/3ml NEB AEROSOL SCH ×3 (07:29→19:12)
[2017-09-21] MEDS: GUAIFENESIN 400MG TABLET PO SCH ×3 (08:31→21:41)
[2017-09-21] MEDS: LEVOTHYROXINE 100 MCG TABLET PO SCH (08:32)
[2017-09-21] MEDS: MAGNESIUM OXIDE 400 MG TABLET PO SCH (08:32)
[2017-09-21] MEDS: AMLODIPINE 5 MG TABLET PO SCH (08:32)
[2017-09-21] MEDS: FOLIC ACID 1 MG TABLET PO SCH (08:32)
[2017-09-21] MEDS: LORATADINE 10 MG TABLET PO SCH (08:32)
[2017-09-21] MEDS: BuPROPion XL 150mg (24HR) TABLET PO SCH ×2 (08:32→21:41)
[2017-09-21] MEDS: LISINOPRIL 40 MG TABLET PO SCH (08:32)
[2017-09-21] MEDS: BIOTIN 5000 MCG PO SCH (08:33)
[2017-09-21] MEDS ORDERED: ACETAMINOPHEN 325 MG TABLET PO PRN (12:47)
[2017-09-21] MEDS ORDERED: REFRESH CLASSIC Eye Drops 0.4ml EACH EYE PRN (12:47)
--- NOTE | 2017-09-21 12:58 | Progress Note ---
- Date 09/21/17 Subjective: Patient feels that she has improved today. She did get up and walk down the flowers. She has tolerated meals. Still requiring oxygen, does not use oxygen at home prior to this admission. No chest pain, she is still short of breath when she gets up to move. Objective Vital signs: Temperature 96.8 F 09/21/17 08:00 Pulse Rate 99 09/21/17 09:28 Respiratory Rate 18 09/21/17 11:03 Blood Pressure 143/68 H 09/21/17 08:00 Pulse Oximetry 93 09/21/17 11:03 Rhythm: Normal Sinus Rhythm Height/Weight/BMI: Height 1.63 m Weight 51.3 kg Body Mass Index 19.3 - Constitutional Present: well nourished, well developed - Routine HEENT Exam Eye: Present: EOMI ENT: Present: mucous membranes moist, dentition normal - Routine Respiratory Exam Present: wheezes (minimal), diminished air movement - Routine Cardiovascular Exam Present: RRR. Absent: murmur - Routine Abdominal Exam Present: soft, normoactive bowel sounds, non distended. Absent: tenderness Results - Labs CBC & Chem 7: 09/21/17 04:20 09/21/17 04:20 Assessment and Plan (1) COPD exacerbation Current visit: Yes Status: Acute (2) Respiratory failure with hypoxia Current visit: Yes Status: Acute Assessment and Plan: IMPRESSION Hyponatremia COPD exacerbation -- +Human Metapneumovirus Hypoxemia HTN Elevated LFTs- POA Hypothyroidism PLAN Continue Levaquin, decrease Solu-Medrol to 30 mg IV twice a day. Continue respiratory treatments as needed. O2 nasal cannula, wean as tolerated. Continue other medication chronically. Elevated LFTs resolved. Consider discharge tomorrow if stable Sylvester Sue MD Hospital Course Summary Disclaimer: The visit summary below is not to be considered part of the above Progress Note. Hospital Course: 09/19/17 17:51 Assessment: COPD exacerbation with sig hypoxemia Hyponatremia Chest pain-?cardiac HTN Plan O2 supplementation, Levaquin IV for assumptive pneumonia. Follow CXR over next 48 hours for possible blossoming pneumonia. Viral resp panel pending. Serial cardiac labs. Consult cardiology if trop elevates. Dr Gamble aware. IV solumedrol and resp tx. Repeat cxr and labs in am. Sylvester Sue MD 12/12/17 Plan Overall breathing of it appears to be improved. Discussed diagnosis of hematoma. Melanoma virus. Continue with symptomatic treatment including scheduled nebulizers, cough suppression. Intake is on IV Levaquin for antimicrobial coverage. Further episodes of chest pain, serial troponin remained undetectable. Did review old records, patient chronically has hyponatremia was down to 108 at one point in 2011. It appears that her baseline is 125-130 Asked nursing staff to obtain sputum culture. Continue with scheduled Solu-Medrol, will decrease to 62.5 grams every 8 hrs as pulmonary inflamation has greatly improved. Today's to require oxygen to maintain saturations. Will work on weaning down as able. PT and OT consult placed for tomorrow morning. This patient does reside independently. Case discussed with attending, Dr. Sue 09/21/17 12:59 IMPRESSION Hyponatremia COPD exacerbation -- +Human Metapneumovirus Hypoxemia HTN Elevated LFTs- POA Hypothyroidism PLAN Continue Levaquin, decrease Solu-Medrol to 30 mg IV twice a day. Continue respiratory treatments as needed. O2 nasal cannula, wean as tolerated. Continue other medication chronically. Elevated LFTs resolved. Consider discharge tomorrow if stable Syvlester Sue MD
[2017-09-21] MEDS: LEVOFLOXACIN PB 500 MG/100 ML BAG IV SCH (16:25)
[2017-09-21] MEDS ORDERED: BENZOCAINE 20% ORAL GEL (Max Strength) MM PRN (21:00)
[2017-09-21] MEDS: GUAIFENESIN/CODEINE 5ml ORAL LIQUID PO PRN (21:41)
[2017-09-21] MEDS: SALINE FLUSH 10ml SYRINGE IVF PRN (21:42)
[2017-09-21] MEDS: METHYLPREDNISOLONE SOD SUCC 40mg/ml INJECTION IVP SCH (21:43)
[2017-09-22] MEDS: BUDESONIDE INH.SOLN 0.5mg/2ml NEB AEROSOL SCH ×2 (08:07→19:35)
[2017-09-22] MEDS: ALBUTEROL/IPRATROPIUM 2.5mg-0.5mg/3ml NEB AEROSOL SCH ×4 (08:07→19:35)
[2017-09-22] MEDS: LORATADINE 10 MG TABLET PO SCH (08:33)
[2017-09-22] MEDS: MAGNESIUM OXIDE 400 MG TABLET PO SCH (08:33)
[2017-09-22] MEDS: BuPROPion XL 150mg (24HR) TABLET PO SCH ×2 (08:33→21:10)
[2017-09-22] MEDS: LEVOTHYROXINE 100 MCG TABLET PO SCH (08:33)
[2017-09-22] MEDS: LISINOPRIL 40 MG TABLET PO SCH (08:33)
[2017-09-22] MEDS: GUAIFENESIN 400MG TABLET PO SCH ×3 (08:33→21:10)
[2017-09-22] MEDS: AMLODIPINE 5 MG TABLET PO SCH (08:33)
[2017-09-22] MEDS: BIOTIN 5000 MCG PO SCH (08:34)
[2017-09-22] MEDS: FOLIC ACID 1 MG TABLET PO SCH (08:34)
[2017-09-22] MEDS: METHYLPREDNISOLONE SOD SUCC 40mg/ml INJECTION IVP SCH (08:35)
--- NOTE | 2017-09-22 11:49 | Progress Note ---
<Marisa Novoa V - Last Filed: 09/22/17 11:44> - Date 09/22/17 Subjective: Tiffany is seen today while up in the chair. She does continue to require 1-2 liters of oxygen to maintain adequate saturations. Overall, she feels that her breathing has improved. She does complain of some frontal sinus congestion, however, overall coughing is much better. Denies pain, appetite is good. No difficulty with urination. Objective Vital signs: Temperature 97.7 F 09/22/17 07:35 Pulse Rate 83 09/22/17 09:00 Respiratory Rate 16 09/22/17 08:08 Blood Pressure 142/69 H 09/22/17 07:35 Pulse Oximetry 92 09/22/17 11:10 Height/Weight/BMI: Height 1.63 m Weight 52.2 kg Body Mass Index 19.3 - Constitutional Present: no acute distress, well nourished, well developed - Routine HEENT Exam Eye: Present: EOMI ENT: Present: mucous membranes moist, dentition normal - Routine Respiratory Exam Present: CTA bilaterally, diminished air movement (bilateral bases posteriorly) . Absent: wheezes - Routine Cardiovascular Exam Present: RRR, S1, S2. Absent: murmur - Routine Abdominal Exam Present: soft, normoactive bowel sounds, non distended. Absent: tenderness - Routine Extremities Exam Present: no edema, pulses intact - Routine Back/Spine/Pelvis Exam Back/Spine: Present: full ROM - Routine Skin Exam Present: intact, dry, warm - Routine Neurological Exam Present: alert, oriented X3, CN II-XII intact - Routine Lymphatic Exam Lymphatic: Absent: adenopathy - Routine Psychiatric Exam Present: normal affect, cooperative Results - Labs CBC & Chem 7: 09/22/17 04:00 09/22/17 04:00 Assessment and Plan (1) COPD exacerbation Current visit: Yes Status: Acute (2) Respiratory failure with hypoxia Current visit: Yes Status: Acute Assessment and Plan: IMPRESSION Human Metapneumovirus Hyponatremia- Acute on chronic COPD exacerbation Hypoxemia HTN Elevated LFTs- POA Hypothyroidism PLAN Continue Levaquin IV for antimicrobial coverage. Transition over to oral prednisone tomorrow morning, Prednisone 40 mg daily. Replaced to monitor ambulatory oximetry. Continue to work on weaning down oxygen. Continue to monitor hyponatremia. Again, patient does have chronic hyponatremia. He should be seen by physical therapy yesterday. They recommended continuing home to independent living Encourage ambulation 3 times a day for ongoing strengthening. Will hopeful patient can be discharged to inpatient living in the near future. Hospital Course Summary Disclaimer: The visit summary below is not to be considered part of the above Progress Note. Hospital Course: 09/19/17 Assessment: COPD exacerbation with sig hypoxemia Hyponatremia Chest pain-?cardiac HTN Plan O2 supplementation, Levaquin IV for assumption pneumonia. Follow CXR over next 48 hours for possible blossoming pneumonia. Viral resp panel pending. Serial cardiac labs. Consult cardiology if trop elevates. Dr Gamble aware. IV solumedrol and resp tx. Repeat cxr and labs in am. ySlvester Sue MD 09/20/17 Overall breathing of it appears to be improved. Discussed diagnosis of hematoma. Melanoma virus. Continue with symptomatic treatment including scheduled nebulizers, cough suppression. Intake is on IV Levaquin for antimicrobial coverage. Further episodes of chest pain, serial troponin remained undetectable. Did review old records, patient chronically has hyponatremia was down to 108 at one point in 2011. It appears that her baseline is 125-130 Asked nursing staff to obtain sputum culture. Continue with scheduled Solu-Medrol, will decrease to 62.5 grams every 8 hrs as pulmonary inflamation has greatly improved. Today's to require oxygen to maintain saturations. Will work on weaning down as able. PT and OT consult placed for tomorrow morning. This patient does reside independently. Case discussed with attending, Dr. Sue 09/21/17 Continue Levaquin, decrease Solu-Medrol to 30 mg IV twice a day. Continue respiratory treatments as needed. O2 nasal cannula, wean as tolerated. Continue other medication chronically. Elevated LFTs resolved. Consider discharge tomorrow if stable Sylvester Sue MD 09/22/17 Continue Levaquin IV for antimicrobial coverage. Transition over to oral prednisone tomorrow morning, Prednisone 40 mg daily. Replaced to monitor ambulatory oximetry. Continue to work on weaning down oxygen. Continue to monitor hyponatremia. Again, patient does have chronic hyponatremia. He should be seen by physical therapy yesterday. They recommended continuing home to independent living Encourage ambulation 3 times a day for ongoing strengthening. Will hopeful patient can be discharged to inpatient living in the near future. <Saman Cosby - Last Filed: 09/22/17 14:11> - Date 09/22/17 Objective Vital signs: Temperature 97.7 F 09/22/17 07:35 Pulse Rate 83 09/22/17 09:00 Respiratory Rate 16 09/22/17 12:03 Blood Pressure 142/69 H 09/22/17 07:35 Pulse Oximetry 92 09/22/17 11:10 Height/Weight/BMI: Height 1.63 m Weight 52.2 kg Body Mass Index 19.3 Results - Labs CBC & Chem 7: 09/22/17 04:00 09/22/17 04:00 Assessment and Plan (1) COPD exacerbation Current visit: Yes Status: Acute (2) Respiratory failure with hypoxia Current visit: Yes Status: Acute Assessment and Plan: IMPRESSION Human Metapneumovirus Hyponatremia- Acute on chronic COPD exacerbation Hypoxemia HTN Elevated LFTs- POA Hypothyroidism Have independently interviewed and examined pt. Chart reviewed. Case discussed with CM & my FISCAL SERVICES DIRECTOR. Care plan developed with my supervision; agree with above. Doing okay overall. Still noted nagging cough-not able to mobilize sputum. Denies chest pain from the cough. Eating okay. Bowels stable. No f/c. Strength starting to increase. Lungs: decreased bilaterally, diminished air movement. CV: regular MSE: awake alert appropriate Plan: Continue levofloxacin and neb treatments. Stop Solu-Medrol and start Prednisone 40mg daily tomorrow am. Encourage continued acapella use. Encourage ambulation. Wean O2. Hope for discharge to home in near future. Time spent with patient care 25 minutes. DVT Prophylaxis: SCD's Resuscitation Status: Full Code - Time spent with patient Time with patient PN: 25 minutes Hospital Course Summary Disclaimer: The visit summary below is not to be considered part of the above Progress Note.
[2017-09-22] MEDS: LEVOFLOXACIN PB 500 MG/100 ML BAG IV SCH (16:40)
[2017-09-22] MEDS: SALINE FLUSH 10ml SYRINGE IVF PRN (21:11)
[2017-09-22] MEDS: GUAIFENESIN/CODEINE 5ml ORAL LIQUID PO PRN (22:09)
[2017-09-23] MEDS: BUDESONIDE INH.SOLN 0.5mg/2ml NEB AEROSOL SCH ×2 (07:03→19:47)
[2017-09-23] MEDS: ALBUTEROL/IPRATROPIUM 2.5mg-0.5mg/3ml NEB AEROSOL SCH ×4 (07:03→19:47)
[2017-09-23] MEDS: BuPROPion XL 150mg (24HR) TABLET PO SCH ×2 (08:07→22:50)
[2017-09-23] MEDS: PredniSONE 20 MG TABLET PO SCH (08:07)
[2017-09-23] MEDS: SALINE FLUSH 10ml SYRINGE IVF PRN (08:07)
[2017-09-23] MEDS: MAGNESIUM OXIDE 400 MG TABLET PO SCH (08:07)
[2017-09-23] MEDS: GUAIFENESIN 400MG TABLET PO SCH ×3 (08:07→22:50)
[2017-09-23] MEDS: FOLIC ACID 1 MG TABLET PO SCH (08:08)
[2017-09-23] MEDS: LISINOPRIL 40 MG TABLET PO SCH (08:08)
[2017-09-23] MEDS: LEVOTHYROXINE 100 MCG TABLET PO SCH (08:08)
[2017-09-23] MEDS: AMLODIPINE 5 MG TABLET PO SCH (08:08)
[2017-09-23] MEDS: BIOTIN 5000 MCG PO SCH (08:09)
[2017-09-23] MEDS: LORATADINE 10 MG TABLET PO SCH (08:12)
--- NOTE | 2017-09-23 09:43 | Progress Note ---
- Date 09/23/17 Subjective: Tiffany is seen today in follow up for her influenza and COPD exacerbation. She is seen while sitting up in her chair, having just finished her breakfast. She reports that she is feeling better today and denies any complaints. No fevers, chills, chest pain, abdominal pain, nausea, vomiting or dysuria. Her appetite is good and bowels are moving. She continues to require 1-2L oxygen to maintain adequate saturations and denies oxygen use at home. She reports that her cough has become more productive and she was able to provide a sputum sample last night with cultures pending. Objective Vital signs: Temperature 98.0 F 09/23/17 07:31 Pulse Rate 74 09/23/17 07:31 Respiratory Rate 17 09/23/17 07:31 Blood Pressure 131/70 09/23/17 07:31 Pulse Oximetry 92 09/23/17 07:31 Rhythm: Normal Sinus Rhythm Height/Weight/BMI: Height 5 ft 4 in Weight 115 lb 11.883 oz Body Mass Index 19.3 Comments: Patient seen while sitting in her recliner, texting her family; in good spirits and very pleasant. - Constitutional Present: no acute distress, well nourished, well developed, thin, cooperative - Routine HEENT Exam Head: Present: normocephalic, atraumatic Eye: Present: PERRL. Absent: conjunctival icterus ENT: Present: mucous membranes moist - Routine Respiratory Exam Present: decreased breath sounds. Absent: rhonchi, stridor, wheezes, crackles Comments: occasional productive cough on exam; no conversational dyspnea; no respiratory distress; remains on 1L. - Routine Cardiovascular Exam Present: RRR, S1, S2 - Routine Abdominal Exam Present: soft, normoactive bowel sounds, non distended, non tender. Absent: guarding, firm - Routine Extremities Exam Present: no edema, full ROM, pulses intact, normal capillary refill - Routine Back/Spine/Pelvis Exam Back/Spine: Present: full ROM. Absent: vertebral tenderness - Routine Musculoskeletal Exam Musculoskeletal: Present: normal strength, moving extremities well - Routine Skin Exam Present: intact, dry, warm. Absent: jaundice Comments: afebrile - Routine Neurological Exam Present: alert, oriented X3, moving all extremities, normal speech. Absent: facial asymmetry - Routine Lymphatic Exam Lymphatic: Absent: lymphedema - Routine Psychiatric Exam Present: normal affect, cooperative, good insight, good judgment Results - Labs CBC & Chem 7: 09/23/17 04:54 09/23/17 04:54 Microbiology Results: Microbiology 09/22/17 21:18 Sputum, Cf Patient Sputum Culture - Preliminary Culture Initiated - Results Pending Assessment and Plan (1) COPD exacerbation Current visit: Yes Status: Acute (2) Respiratory failure with hypoxia Current visit: Yes Status: Acute Assessment and Plan: IMPRESSION Human Metapneumovirus Hyponatremia- Acute on chronic COPD exacerbation Hypoxemia HTN Elevated LFTs- POA Hypothyroidism Plan - 09/23/17 (Mirakian) Overall, patient appears to be making gains. Cough has become productive and patient was able to provide sputum sample with results pending. Continue levofloxacin for antimicrobial coverage of pulmonary pathogens - day 5. Continue neb treatments, Mucinex and acapella. Continue to wean oxygen as able. Patient denies use of oxygen at home. Solu-Medrol discontinued and changed to oral Prednisone 40mg daily. Patient seen and evaluated by PT. Continue to encourage ambulation 3x daily to maintain strength. Hyponatremia slightly improved with sodium at 132. History of chronic hyponatremia. Continue to monitor. Anticipate discharge to independent living in the near future. DVT Prophylaxis: SCD's Resuscitation Status: Full Code - Time spent with patient Time with patient PN: 25 minutes - Physician Narrative Physician: Saman Cosby MD Narrative: Alea I have independently interviewed and examined pt. Chart reviewed. Case discussed with CM and my PA. Care plan developed with my supervision; agree with above. Doing okay. Still notes cough and congestion. Moving some sputum. Appetite improving. Moving more. No f/c. Lungs: decreased, little air movement. CV: regular AB: soft nt/nd +BS MSE: awake alert appropriate CXR: No acute changes. Emphysema Plan: Did evaluate patient for home O2-would qualify. With no acute changes on CXR most likely will chronically need O2. Viral infection does cloud the picture as potentially O2 needs my decrease once the virus has run its course. Will continue with treatment and continue to work to wean off O2. Possible discharge in near future. Hospital Course Summary Disclaimer: The visit summary below is not to be considered part of the above Progress Note. Hospital Course: 09/19/17 Assessment: COPD exacerbation with sig hypoxemia Hyponatremia Chest pain-?cardiac HTN Plan O2 supplementation, Levaquin IV for assumption pneumonia. Follow CXR over next 48 hours for possible blossoming pneumonia. Viral resp panel pending. Serial cardiac labs. Consult cardiology if trop elevates. Dr Gamble aware. IV solumedrol and resp tx. Repeat cxr and labs in am. Sylvester Sue MD 09/20/17 Overall breathing of it appears to be improved. Discussed diagnosis of hematoma. Melanoma virus. Continue with symptomatic treatment including scheduled nebulizers, cough suppression. Intake is on IV Levaquin for antimicrobial coverage. Further episodes of chest pain, serial troponin remained undetectable. Did review old records, patient chronically has hyponatremia was down to 108 at one point in 2011. It appears that her baseline is 125-130 Asked nursing staff to obtain sputum culture. Continue with scheduled Solu-Medrol, will decrease to 62.5 grams every 8 hrs as pulmonary inflamation has greatly improved. Today's to require oxygen to maintain saturations. Will work on weaning down as able. PT and OT consult placed for tomorrow morning. This patient does reside independently. Case discussed with attending, Dr. Sue 09/21/17 Continue Levaquin, decrease Solu-Medrol to 30 mg IV twice a day. Continue respiratory treatments as needed. O2 nasal cannula, wean as tolerated. Continue other medication chronically. Elevated LFTs resolved. Consider discharge tomorrow if stable Sylvester Sue MD 09/22/17 Continue Levaquin IV for antimicrobial coverage. Transition over to oral prednisone tomorrow morning, Prednisone 40 mg daily. Replaced to monitor ambulatory oximetry. Continue to work on weaning down oxygen. Continue to monitor hyponatremia. Again, patient does have chronic hyponatremia. He should be seen by physical therapy yesterday. They recommended continuing home to independent living Encourage ambulation 3 times a day for ongoing strengthening. Will hopeful patient can be discharged to inpatient living in the near future. Plan - 09/23/17 (Mirakian) Overall, patient appears to be making gains. Cough has become productive and patient was able to provide sputum sample with results pending. Continue levofloxacin for antimicrobial coverage of pulmonary pathogens - day 5. Continue neb treatments, mucinex and acapella. Continue to wean oxygen as able. Patient denies use of oxygen at home. Solu-medrol discontinued and changed to oral Prednisone 40mg daily. Patient seen and evaluated by PT. Continue to encourage ambulation 3x daily to maintain strength. Hyponatremia slightly improved with sodium at 132. History of chronic hyponatremia. Continue to monitor. Anticipate discharge to independent living in the near future. Addendum entered and electronically signed by MARCOS Garcia 09/23/17 14: 40: Kenji - [id number]: discussed night oximetry results as well as ambulatory oximetry results from 09/22/17 with respiratory. Respiratory reports that patient became hypoxic on room air prior to study in upper 80's and dropped to 80% with ambulation requiring 3L NC oxygen with rest periods to obtain SAO2>90% . Night oximetry revealed hypoxia and required oxygen at 2L to maintain SAO2 >90 % throughout the night. Recommendations - 3L oxygen during day, especially with ambulation; 2L oxygen at night.
[2017-09-23] MEDS: LEVOFLOXACIN 500 MG TABLET PO SCH (16:06)
--- NOTE | 2017-09-23 17:19 | XRay Report ---
Indication: COPD, hypoxia - ? Infiltrate PROCEDURE: XR chest 2V: Encounter: Initial Comparison: 09/19/2017 Findings: Meniscus and hyperinflated with flattening and lobulation of the diaphragms. Heart size is normal. There is no focal opacity to suggest atelectasis or pneumonia. No mediastinal or hilar adenopathy. No pleural effusion. There is no significant tortuosity of the descending thoracic aorta. There are mild degenerative changes of the thoracic spine. IMPRESSION: Emphysema. No acute process. .
[2017-09-24] MEDS: GUAIFENESIN/CODEINE 5ml ORAL LIQUID PO PRN ×2 (02:52→17:25)
[2017-09-24] MEDS: SALINE FLUSH 10ml SYRINGE IVF PRN (02:52)
[2017-09-24] MEDS: ALBUTEROL/IPRATROPIUM 2.5mg-0.5mg/3ml NEB AEROSOL SCH ×2 (06:59→13:10)
[2017-09-24] MEDS: PredniSONE 20 MG TABLET PO SCH (09:23)
[2017-09-24] MEDS: AMLODIPINE 5 MG TABLET PO SCH (09:23)
[2017-09-24] MEDS: GUAIFENESIN 400MG TABLET PO SCH ×2 (09:24→15:22)
[2017-09-24] MEDS: BIOTIN 5000 MCG PO SCH (09:24)
[2017-09-24] MEDS: BuPROPion XL 150mg (24HR) TABLET PO SCH (09:24)
[2017-09-24] MEDS: LISINOPRIL 40 MG TABLET PO SCH (09:25)
[2017-09-24] MEDS: LORATADINE 10 MG TABLET PO SCH (09:25)
[2017-09-24] MEDS: MAGNESIUM OXIDE 400 MG TABLET PO SCH (09:25)
[2017-09-24] MEDS: FOLIC ACID 1 MG TABLET PO SCH (09:25)
[2017-09-24] MEDS: LEVOTHYROXINE 100 MCG TABLET PO SCH (09:33)
[2017-09-24] MEDS ORDERED: ALBUTEROL/IPRATROPIUM 2.5mg-0.5mg/3ml NEB AEROSOL PRN (13:08)
[2017-09-24] MEDS ORDERED: BUDESONIDE INH.SOLN 0.5mg/2ml NEB AEROSOL PRN (13:09)
[2017-09-24] MEDS: BUDESONIDE INH.SOLN 0.5mg/2ml NEB AEROSOL SCH (13:10)
--- NOTE | 2017-09-24 15:12 | Progress Note ---
- Date 09/24/17 Subjective: F/U: Human Metapneumovirus, Hyponatremia- Acute on chronic, COPD exacerbation Doing okay today. Still with some cough and congestion, not mobilizing much sputum. Eating well. No nausea or ab pain. Trying to stay active-would like to walk more, but nurses are busy. No f/c. Did feel very shaky last night post DuoNeb treatment. Objective Vital signs: Temperature 97.1 F 09/24/17 08:00 Pulse Rate 77 09/24/17 08:00 Respiratory Rate 14 09/24/17 08:00 Blood Pressure 145/72 H 09/24/17 08:00 Pulse Oximetry 88 L 09/24/17 13:20 Rhythm: Normal Sinus Rhythm Height/Weight/BMI: Height 1.63 m Weight 52.5 kg Body Mass Index 19.3 - Constitutional Present: well nourished, well developed, thin, cooperative - Routine HEENT Exam Head: Present: normocephalic, atraumatic Eye: Present: EOMI, PERRL ENT: Present: mucous membranes moist - Routine Respiratory Exam Present: decreased breath sounds, distant breath sounds, diminished air movement. Absent: respiratory distress, wheezes, crackles - Routine Cardiovascular Exam Present: RRR, no murmur - Routine Abdominal Exam Present: soft, normoactive bowel sounds, non distended, non tender. Absent: guarding - Routine Extremities Exam Present: no edema, pulses intact. Absent: cyanosis, clubbing - Routine Musculoskeletal Exam Musculoskeletal: Present: no clubbing or cyanosis, normal strength - Routine Skin Exam Present: dry, warm - Routine Neurological Exam Present: alert, oriented X3, CN II-XII intact, moving all extremities, vision grossly intact, hearing grossly intact, normal speech. Absent: motor deficit, altered mental status - Routine Psychiatric Exam Present: normal affect, normal thought process, cooperative Results - Labs CBC & Chem 7: 09/24/17 04:14 09/24/17 04:14 Microbiology Results: Microbiology 09/22/17 21:18 Sputum, Cf Patient Gram Stain - Final 09/22/17 21:18 Sputum, Cf Patient Sputum Culture - Final Normal Respiratory Julieta including Yeast Present Assessment and Plan (1) COPD exacerbation Current visit: Yes Status: Acute (2) Respiratory failure with hypoxia Current visit: Yes Status: Acute Assessment and Plan: IMPRESSION Human Metapneumovirus Hyponatremia (POA) - Acute on chronic COPD exacerbation COPD/Emphysema Acute respiratory failure with hypoxemia HTN Elevated LFTs (POA) - resolved Hypothyroidism Plan Will discharge to home-medically stable. Patient did qualify for home O2 - needs 1L at rest, 2L when sleeping, and 3L with ambulation. [employer] the supplier. Continue with Cipro for for 4 more days. Will continue Prednisone 20mg daily for 7 days. Acapella QID for 1 week, then as needed. May use her home IS 2-3 times a day. Mucinex DM BID for 1 week, my use Robitussin with Codeine as needed for more severe cough. F/U with Dr Juan Harris in 1 week. Recommend recheck BMP at that time due to hyponatremia. Case discussed with CM. Time spent with patient care and discharge greater than 30 minutes. DVT Prophylaxis: SCD's Resuscitation Status: Full Code Hospital Course Summary Disclaimer: The visit summary below is not to be considered part of the above Progress Note. Hospital Course: 09/19/17 Assessment: COPD exacerbation with sig hypoxemia Hyponatremia Chest pain-?cardiac HTN Plan O2 supplementation, Levaquin IV for assumption pneumonia. Follow CXR over next 48 hours for possible blossoming pneumonia. Viral resp panel pending. Serial cardiac labs. Consult cardiology if trop elevates. Dr Gamble aware. IV solumedrol and resp tx. Repeat cxr and labs in am. Sylvester Sue MD 09/20/17 Overall breathing of it appears to be improved. Discussed diagnosis of hematoma. Melanoma virus. Continue with symptomatic treatment including scheduled nebulizers, cough suppression. Intake is on IV Levaquin for antimicrobial coverage. Further episodes of chest pain, serial troponin remained undetectable. Did review old records, patient chronically has hyponatremia was down to 108 at one point in 2011. It appears that her baseline is 125-130 Asked nursing staff to obtain sputum culture. Continue with scheduled Solu-Medrol, will decrease to 62.5 grams every 8 hrs as pulmonary inflamation has greatly improved. Today's to require oxygen to maintain saturations. Will work on weaning down as able. PT and OT consult placed for tomorrow morning. This patient does reside independently. Case discussed with attending, Dr. Sue 09/21/17 Continue Levaquin, decrease Solu-Medrol to 30 mg IV twice a day. Continue respiratory treatments as needed. O2 nasal cannula, wean as tolerated. Continue other medication chronically. Elevated LFTs resolved. Consider discharge tomorrow if stable Sylvester Sue MD 09/22/17 Continue Levaquin IV for antimicrobial coverage. Transition over to oral prednisone tomorrow morning, Prednisone 40 mg daily. Replaced to monitor ambulatory oximetry. Continue to work on weaning down oxygen. Continue to monitor hyponatremia. Again, patient does have chronic hyponatremia. He should be seen by physical therapy yesterday. They recommended continuing home to independent living Encourage ambulation 3 times a day for ongoing strengthening. Will hopeful patient can be discharged to inpatient living in the near future. Plan - 09/23/17 (Kenji) Overall, patient appears to be making gains. Cough has become productive and patient was able to provide sputum sample with results pending. Continue levofloxacin for antimicrobial coverage of pulmonary pathogens - day 5. Continue neb treatments, mucinex and acapella. Continue to wean oxygen as able. Patient denies use of oxygen at home. Solu-medrol discontinued and changed to oral Prednisone 40mg daily. Patient seen and evaluated by PT. Continue to encourage ambulation 3x daily to maintain strength. Hyponatremia slightly improved with sodium at 132. History of chronic hyponatremia. Continue to monitor. Anticipate discharge to independent living in the near future. 09/24/17 Will discharge to home-medically stable. Patient did qualify for home O2 - needs 1L at rest, 2L when sleeping, and 3L with ambulation. [facility] the supplier. Continue with Cipro for for 4 more days. Will continue Prednisone 20mg daily for 7 days. Acapella QID for 1 week, then as needed. May use her home IS 2-3 times a day. Mucinex DM BID for 1 week, my use Robitussin with Codeine as needed for more severe cough. F/U with Dr Juan Harris in 1 week. Recommend recheck BMP at that time due to hyponatremia. See orders for details.
[2017-09-24 15:27] VITALS: BP 160/73; PULSE 94; RESP 16; TEMP 97.2; O2SAT 91
[2017-09-24] MEDS: LEVOFLOXACIN 500 MG TABLET PO SCH (16:17)
--- NOTE | 2017-09-24 16:43 | Discharge Summary ---
Discharge Information Date of admission: 09/19/17 16:03 Anticipated date of discharge: 09/24/17 Attending Physician: Saman Cosby MD Primary care physician: Reba Harris MD Consults: PT/OT - Discharge Diagnosis (1) Respiratory failure with hypoxia Status: Acute (2) COPD exacerbation Status: Acute Discharge diagnosis Acute respiratory failure with hypoxemia Human Metapneumovirus Associated conditions and complications Hyponatremia (POA) - Acute on chronic COPD exacerbation COPD/Emphysema HTN Elevated LFTs (POA) - resolved Hypothyroidism - Laboratory Labs: Admit Lab 09/19/17 13:59 WBC 7.4 Hgb 14.2 Hct 42.1 MCV 91.5 MCH 30.9 Plt Count 238 Neut % (Auto) 78.1 H Lymph % (Auto) 14.3 L [place] % (Auto) 6.9 Eos % (Auto) 0.1 Baso % (Auto) 0.3 Admit Lab 09/19/17 13:59 Sodium 131 L Potassium 4.1 Chloride 87 L Carbon Dioxide 35 H Anion Gap 9 BUN 19.0 H Creatinine 0.6 L GFR Calculation 96 BUN/Creatinine Ratio 32 H Glucose 130 H Calculated Osmolality 257 L Calcium 9.2 Total Bilirubin 0.40 AST 49 H ALT 57 H Troponin I < 0.012 B-Natriuretic Peptide 249 H Total Protein 7.2 Albumin 4.1 Globulin 3.1 Albumin/Globulin Ratio 1.3 Normalization of Liver Enzymes 09/22/17 04:00 AST 28 ALT 50 09/24/17 04:14 09/24/17 04:14 - Microbiology Microbiology 09/22/17 21:18 Sputum, Cf Patient Gram Stain - Final 09/22/17 21:18 Sputum, Cf Patient Sputum Culture - Final Normal Respiratory Julieta including Yeast Present - Radiology Radiology: Date of Exam: 09/19/17 EXAM: XR chest 2V FINDINGS: The heart is not enlarged and the mediastinum is not widened. The trachea is midline. The pulmonary vascularity is normal. The lung alejandro are hyperinflated with flattening of the hemidiaphragms There are mild increased interstitial markings that appear chronic but no acute consolidating infiltrates are seen and the costophrenic angles are clear. There is no evidence of a pneumothorax. The bony thorax shows mild to moderate degenerative changes in the mildly kyphotic dorsal spine. Postsurgical changes are seen under the right hemidiaphragm. IMPRESSION: 1. Chronic emphysematous lung changes. 2. No acute focal infiltrates. Date of Exam: 09/23/17 PROCEDURE: XR chest 2V Findings: Meniscus and hyperinflated with flattening and lobulation of the diaphragms. Heart size is normal. There is no focal opacity to suggest atelectasis or pneumonia. No mediastinal or hilar adenopathy. No pleural effusion. There is no significant tortuosity of the descending thoracic aorta. There are mild degenerative changes of the thoracic spine. IMPRESSION: Emphysema. No acute process. History of Present Illness HPI: Patient is a pleasant 82-year-old female who presented to see her primary care provider, Dr. Terri jason in [place] today for evaluation of ongoing cough. He is had a cough for the past 2 weeks. She was seen last week in the clinic and was prescribed a Z-Wilfrid. She continued to have a cough. This presented for reevaluation today. She was found to be hypoxic with reported saturations in the 60s. She was then directed to the emergency room for acute evaluation and treatment. While in the emergency room, laboratory studies, chest x-ray were obtained. CBC found to be unremarkable, chemistry panel revealed mild hyponatremia with sodium 131, however potassium normal at 4.1, LFTs slightly elevated, troponin negative, and proBNP 249. D-dimer 181. Patient did report having some chest pressure and a twelve-lead EKG was obtained that did reveal sinus rhythm, questionable ST changes. Dr. Gamble was contacted and EKG was unchanged from previous. Chest x-ray revealed chronic COPD like changes. No acute infiltrate or edema. He can continue to be hypoxic requiring 2 liters of oxygen by nasal cannula to maintain adequate saturations. She also was continued to be to Between 28 and 40 breaths per minute. Given these findings, Hospital services were contacted and accepted patient for inpatient admission for further evaluation and treatment. It is expected that her stay will be greater than 2 overnights. For complete details of the H&P refer to that document. Objective Vital signs: Temperature 97.2 F 09/24/17 15:22 Pulse Rate 94 09/24/17 15:22 Respiratory Rate 16 09/24/17 15:22 Blood Pressure 160/73 H 09/24/17 15:22 Pulse Oximetry 91 09/24/17 15:22 Rhythm: Normal Sinus Rhythm Height/Weight/BMI: Height 1.63 m Weight 52.5 kg Body Mass Index 19.3 Hospital Course This is a general summary of the patient's hospital course. For more details refer to the complete medical record. Hospital course: 09/19/17 Assessment: COPD exacerbation with sig hypoxemia Hyponatremia Chest pain-?cardiac HTN Plan O2 supplementation, Levaquin IV for assumption pneumonia. Follow CXR over next 48 hours for possible blossoming pneumonia. Viral resp panel pending. Serial cardiac labs. Consult cardiology if trop elevates. Dr Gamble aware. IV solumedrol and resp tx. Repeat cxr and labs in am. Sylvester Sue MD 09/20/17 Overall breathing of it appears to be improved. Discussed diagnosis of hematoma. Melanoma virus. Continue with symptomatic treatment including scheduled nebulizers, cough suppression. Intake is on IV Levaquin for antimicrobial coverage. Further episodes of chest pain, serial troponin remained undetectable. Did review old records, patient chronically has hyponatremia was down to 108 at one point in 2011. It appears that her baseline is 125-130 Asked nursing staff to obtain sputum culture. Continue with scheduled Solu-Medrol, will decrease to 62.5 grams every 8 hrs as pulmonary inflamation has greatly improved. Today's to require oxygen to maintain saturations. Will work on weaning down as able. PT and OT consult placed for tomorrow morning. This patient does reside independently. Case discussed with attending, Dr. Sue 09/21/17 Continue Levaquin, decrease Solu-Medrol to 30 mg IV twice a day. Continue respiratory treatments as needed. O2 nasal cannula, wean as tolerated. Continue other medication chronically. Elevated LFTs resolved. Consider discharge tomorrow if stable Sylvester Sue MD 09/22/17 Continue Levaquin IV for antimicrobial coverage. Transition over to oral prednisone tomorrow morning, Prednisone 40 mg daily. Replaced to monitor ambulatory oximetry. Continue to work on weaning down oxygen. Continue to monitor hyponatremia. Again, patient does have chronic hyponatremia. He should be seen by physical therapy yesterday. They recommended continuing home to independent living Encourage ambulation 3 times a day for ongoing strengthening. Will hopeful patient can be discharged to inpatient living in the near future. Plan - 09/23/17 (Mirakian) Overall, patient appears to be making gains. Cough has become productive and patient was able to provide sputum sample with results pending. Continue levofloxacin for antimicrobial coverage of pulmonary pathogens - day 5. Continue neb treatments, mucinex and acapella. Continue to wean oxygen as able. Patient denies use of oxygen at home. Solu-medrol discontinued and changed to oral Prednisone 40mg daily. Patient seen and evaluated by PT. Continue to encourage ambulation 3x daily to maintain strength. Hyponatremia slightly improved with sodium at 132. History of chronic hyponatremia. Continue to monitor. Anticipate discharge to independent living in the near future. 09/24/17 Will discharge to home-medically stable. Patient did qualify for home O2 - needs 1L at rest, 2L when sleeping, and 3L with ambulation. [facility] the supplier. Continue with Cipro for for 4 more days. Will continue Prednisone 20mg daily for 7 days. Acapella QID for 1 week, then as needed. May use her home IS 2-3 times a day. Mucinex DM BID for 1 week, my use Robitussin with Codeine as needed for more severe cough. F/U with Dr Juan Harris in 1 week. Recommend recheck BMP at that time due to hyponatremia. See orders for details. Time spent with patient: discharge greater than 30 minutes DVT Prophylaxis: SCD's Discharge Plan - Discharge Disposition Discharge Date: 09/24/17 Disposition: [facility] Service *Condition: Improved Reason For Visit (Visit label in EMR): COPD exac,hypoxia - Discharge Medications *Discharge Medications: New RX: Benzocaine 20% Oral Gel [Orajel] 1 applicatio MM QID PRN tube PRN Reason: Mouth Pain RX: Ciprofloxacin [Cipro] 500 mg PO BID #8 tab RX: Guaifenesin [Mucinex] 400 mg PO TID tab RX: Guaifenesin/Codeine Phosphate [Guaifenesin-Codeine Syrup] 10 ml PO Q6H PRN #200 ml PRN Reason: Cough /Congestion RX: PredniSONE [Deltasone] 20 mg PO WB #7 tab RX: Acetaminophen [Tylenol] 325 - 650 mg PO Q5H PRN tab PRN Reason: Discomfort Continue RX: Amlodipine Besylate 5 mg PO DAILY #0 RX: L. Acidophilus/Pectin, [place] [Acidophilus [place]] 1 tab PO DAILY #0 tab RX: Carboxymethylcell/Hypromellose [Genteal Gel Drops] 1 drop BOTH EYES DAILY #0 RX: Lisinopril 40 mg PO DAILY #30 tab RX: Cholecalciferol [Vit. D-3] 1,000 unit PO DAILY RX: Mometasone/Formoterol 100/5 [DULERA 100/5mcg INHALER] 2 puff INH BID RX: Levothyroxine Sodium 100 mcg PO DAILY RX: Folic Acid 400 mcg PO DAILY RX: Biotin 5,000 mcg PO DAILY RX: Loratadine 10 mg PO DAILY RX: buPROPion HCl [Bupropion Xl] 150 mg PO BID #0 RX: Albuterol Sulfate [Ventolin Hfa] 2 puff ORAL INH Q4-6H PRN #0 inhaler PRN Reason: SHORTNESS OF AIR RX: Calcium Carb/Mag Carb/Folic AC [Magnebind 400 Rx Tablet] 1 each PO DAILY Discontinued Azithromycin [Azithromycin] 250 mg PO DAILY - Discharge Packet/Instructions *Diet: Regular *Activity: As tolerated. *Pain Management/Treatment: Tylenol as needed. *Wound Care: n/a Additional Instructions: Use Acapella 4 times a day for 1 week, then as needed for congestion. May use you incentive spirometer 2-3 times a day to help breathing. Oxygen use: 1L at rest, 2L when sleeping, 3L with activities. *Expected Signs/Symptoms: Improvement of breathing and decreased cough *Notify Physician if: Temp>100.4. Severe worsening of your breathing. *During Business Hours Contact: Dr Juan Harris *After Business Hours Contact: Dr Juan Harris *Pending Lab/Results: No Pending Lab - Referrals/Follow Up *Referrals/Follow Up: Reba Harris MD [Family Provider] - 1 Week (Hospital follow up for COPD exacerbation. Patient discharged with home O2. Recommend recheck BMP secondary to hyponatremia. ) - Patient Handouts Patient Handouts: COPD (Chronic Obstructive Pulmonary Disease) (GEN) - Dismissal Complete Discharge Instructions are:: Complete Physician Narrative - Narrative Physician: Saman Cosby MD Attestation Narrative: Date: 09/24/17 Time: 1638 I have independently interviewed and examined patient prior to discharge. See my progress note from today for details. Medically stable for discharge to home.
[2017-09-24] MEDS ORDERED: CIPROFLOXACIN 500 MG TABLET PO ONE (16:50)
== END 2017-09-24 18:54 | disposition home health service (06) | DRG 190 ==
LOC: ED 13:03 → SUATTDRO 16:03 → MED 16:03
PROVIDERS: ADMIT Family Medicine; ATTEND Hospitalist

== ENCOUNTER 2017-11-05 09:27 | Inpatient (IN) ==
--- NOTE | 2017-11-05 10:02 | Emergency Department Report ---
General Adult HPI - General Chief complaint: Upper Respiratory Infection Stated complaint: cough Time Seen by Provider: 11/05/17 10:01 Source: patient, family Mode of arrival: ambulatory Limitations: no limitations - History of Present Illness HPI narrative: 82-year-old female presents the emergency department with a chief complaint of a cough productive of yellow mucus. She noted onset of symptoms "a couple of weeks ago.". She completed a course of oral antibiotics last week without improvement. She denies any current pain or discomfort. She was at home when her symptoms began. Symptoms have been persistent in nature since onset. Patient does note chronic use of 3 L nasal cannula at all times. She denies any other complaints or associated symptoms. - Related Data Home Medications Medication Instructions Recorded Confirmed Levothyroxine Sodium 100 mcg PO DAILY 09/19/17 11/05/17 Loratadine 10 mg PO DAILY 09/19/17 11/05/17 Mometasone/Formoterol 100/5 2 puff INH BID 09/19/17 11/05/17 [DULERA 100/5mcg INHALER] Albuterol HFA Inhaler [Ventolin 1 puff INH Q4-6HR PRN 11/05/17 11/05/17 Hfa 90 mcg/actuation] Amlodipine [Norvasc] 5 mg PO DAILY 11/05/17 11/05/17 Lisinopril [Prinivil] 40 mg PO DAILY 11/05/17 11/05/17 buPROPion HCl [Bupropion HCl Sr] 150 mg PO BID 11/05/17 11/05/17 Previous Rx's Medication Instructions Recorded Guaifenesin [Mucinex] 400 mg PO TID tab 09/24/17 Guaifenesin/Codeine Phosphate 10 ml PO Q6H PRN #200 ml 09/24/17 [Guaifenesin-Codeine Syrup] Allergies Allergy/AdvReac Type Severity Reaction Status Date / Time cephalexin Allergy Unknown Verified 11/05/17 09:57 dextromethorphan Allergy Unknown Verified 11/05/17 09:57 Review of Systems Constitutional: Denies: fever, chills Eyes: Denies: eye pain, vision change ENT: Denies: ear pain, throat pain Cardiovascular: Denies: chest pain, palpitations Respiratory: Reports: cough, dyspnea. Denies: wheezes Gastrointestinal: Denies: abdominal pain, nausea, vomiting, diarrhea Genitourinary: Denies: urgency, dysuria Musculoskeletal: Denies: back pain, arthralgia Integumentary: Denies: erythema, rash Neurological: Denies: headache, numbness Psychiatric: Denies: anxiety, depression Endocrine: Denies: fatigue, heat or cold intolerance Hematological/Lymphatic: Denies: easy bleeding, easy bruising Allergic/Immunologic: Denies: facial swelling, urticaria PFSH Patient Stated Medical History Cataracts Yes Hypertension Yes Chronic Obstructive Pulmonary Yes Disease (COPD) Depression Yes Substance Use Disorder No Surgical History: Tonsillectomy. Cholecystectomy. D&C. Bilateral cataracts. Vein stripping Family History: Reviewed and noncontributory - Social History Smoking status: Former smoker Substance use type: does not use Alcohol intake frequency: does not drink Physical Exam - Limitations Limitations: no limitations - General General appearance: alert, in no apparent distress - Normal Exams: Head:: Normocephalic without trauma Eyes:: Pupils are PERRLA w/ EOMI, No scleral icterus, irritation, or foreign bodies noted ENMT:: No facial trauma, nasal exudates, pharyngeal erythema, or exudates are noted Dental: No fractured, loose, or missing teeth noted Neck:: Full range of motion, without adenopathy, JVD, bruits or thyromegaly Chest/Respirations:: Clear all alejandro (diminished throughout.), with good airflow, and symmetry bilaterally Cardiovascular:: Regular rate and rhythm, without murmur or gallop, Pulses 2+ all extremities, capillary refill, <2 seconds all extremities Abdomen:: Bowel sounds positive, soft, non-tender, non-distended, no hepatosplenomegaly, masses or bruits noted Lymphatic:: No lymphadenopathy, or lymphedema noted Musculoskeletal:: No tenderness, or deformity noted, good range of motion, all extremities Integumentary:: No rashes, hives, or bruising noted, hair and nails, without abnormality Neurological:: Patient is alert, and oriented, cranial nerves, motor/sensory/ cerebellar, exams w/o gross deficits, to observation Psychiatric:: Patient exhibits, appropriate attention, emotion and affect Course Vital Signs Temperature 98.4 F 11/05/17 09:29 Pulse Rate 100 11/05/17 09:29 Respiratory Rate 22 11/05/17 09:29 Blood Pressure 177/82 H 11/05/17 09:29 Pulse Oximetry 96 11/05/17 09:29 Temperature 97.3 F 11/05/17 15:49 Pulse Rate 81 11/05/17 15:54 Respiratory Rate 16 11/05/17 15:55 Blood Pressure 139/80 11/05/17 15:49 Pulse Oximetry 95 11/05/17 15:55 Medical Decision Making - [facility] Narrative Medical decision making narrative: Labs/imaging were discussed in detail with the patient and family and questions are answered. Patient is given a DuoNeb treatment in the emergency department with improvement of symptoms. Patient is started on Levaquin 750 mg IV times one at 1159 once sepsis was considered after the CXR was reviewed. Patient has a CURB-65 score of 2. Patient is admitted to the service of the hospitalist for further evaluation in improved condition. No further orders from accepting physician is in agreement with the current plan of management. Patient is started on Levaquin 750 mg IV times one at 1159 once sepsis was considered after the CXR was reviewed. She did not have a lactic acid greater than 4 and she was never hypotensive in the emergency department. - Differential Diagnosis PNA, influenza, viral syndrome, metabolic disorder - Lab Data Result diagrams: 11/05/17 10:37 11/05/17 10:37 Lab Results 11/05/17 11/05/17 11/05/17 Range/Units 10:37 10:37 10:37 WBC 14.1 H (4.5-11.0) T/MM3 RBC 4.04 (4.00-5.20) M/MM3 Hgb 12.8 (12-16) GM/DL Hct 38.6 (36-46) % MCV 95.5 (80-100) UM3 MCH 31.7 (26-34) UUG MCHC 33.2 (31-37) GM/DL RDW Std Deviation 47.2 (36.9-50.2) FL Plt Count 228 (130-400) T/MM3 MPV 9.8 (9.4-12.4) UM3 Immature Gran % (Auto) Not performed Neut % (Auto) Not performed Lymph % (Auto) Not performed Barry % (Auto) Not performed Eos % (Auto) Not performed Baso % (Auto) Not performed Neut # (Auto) Not performed Lymph # (Auto) Not performed Barry # (Auto) Not performed Eos # (Auto) Not performed Baso # (Auto) Not performed Abs Immat Gran (auto) Not performed Neutrophils % (Manual) 91.0 H (33-66) % Band Neutrophils % 2.0 (0-6) % Lymphocytes % (Manual) 2.0 L (23-45) % Monocytes % (Manual) 5.0 (0-9.0) % Neutrophils # (Manual) 12.8 H (1.8-7.7) T/MM3 Band Neutrophils # 0.3 T/MM3 Lymphocytes # (Manual) 0.3 L (1-4.8) T/MM3 Monocytes # (Manual) 0.7 (0-0.8) T/MM3 Poikilocytosis 1+ RBC Morph Comment Abnormal Turbidity < 20 (0-20) Sodium 135 (134-144) MEQ/L Potassium 4.2 (3.6-5) MEQ/L Chloride 95 L (98-107) MEQ/L Carbon Dioxide 34 H (22-30) MEQ/L Anion Gap 6 (5-15) MEQ/L BUN 21.0 H (7-17) MG/DL Creatinine 0.5 L (0.7-1.2) MG/DL GFR Calculation 118 BUN/Creatinine Ratio 42 H (6-26) RATIO Glucose 125 H (65-110) MG/DL Calculated Osmolality 264 (261-280) MOSM/KG Calcium 9.1 (8.4-10.2) MG/DL Total Bilirubin 0.60 (0.20-1.30) MG/DL Icterus Index < 2 (0-7) AST 30 (14-36) U/L ALT 47 (9-52) U/L Alkaline Phosphatase 54 (38-126) U/L Troponin I < 0.012 (0-0.12) ng/ml Total Protein 6.7 (6.3-8.2) G/DL Albumin 3.7 (3.5-5.0) G/DL Globulin 3.0 (2.4-3.6) G/DL Albumin/Globulin Ratio 1.2 (1.1-2.2) RATIO Plasma Lactate (0.6-2.2) MMOL/L Specimen Hemolysis 23 (0-25) Influenza Type A (PCR) Negative (Negative) Influenza Type B (PCR) Negative (Negative) 11/05/17 Range/Units 12:17 WBC (4.5-11.0) T/MM3 RBC (4.00-5.20) M/MM3 Hgb (12-16) GM/DL Hct (36-46) % MCV (80-100) UM3 MCH (26-34) UUG MCHC (31-37) GM/DL RDW Std Deviation (36.9-50.2) FL Plt Count (130-400) T/MM3 MPV (9.4-12.4) UM3 Immature Gran % (Auto) Neut % (Auto) Lymph % (Auto) Barry % (Auto) Eos % (Auto) Baso % (Auto) Neut # (Auto) Lymph # (Auto) Barry # (Auto) Eos # (Auto) Baso # (Auto) Abs Immat Gran (auto) Neutrophils % (Manual) (33-66) % Band Neutrophils % (0-6) % Lymphocytes % (Manual) (23-45) % Monocytes % (Manual) (0-9.0) % Neutrophils # (Manual) (1.8-7.7) T/MM3 Band Neutrophils # T/MM3 Lymphocytes # (Manual) (1-4.8) T/MM3 Monocytes # (Manual) (0-0.8) T/MM3 Poikilocytosis RBC Morph Comment Turbidity (0-20) Sodium (134-144) MEQ/L Potassium (3.6-5) MEQ/L Chloride (98-107) MEQ/L Carbon Dioxide (22-30) MEQ/L Anion Gap (5-15) MEQ/L BUN (7-17) MG/DL Creatinine (0.7-1.2) MG/DL GFR Calculation BUN/Creatinine Ratio (6-26) RATIO Glucose (65-110) MG/DL Calculated Osmolality (261-280) MOSM/KG Calcium (8.4-10.2) MG/DL Total Bilirubin (0.20-1.30) MG/DL Icterus Index (0-7) AST (14-36) U/L ALT (9-52) U/L Alkaline Phosphatase (38-126) U/L Troponin I (0-0.12) ng/ml Total Protein (6.3-8.2) G/DL Albumin (3.5-5.0) G/DL Globulin (2.4-3.6) G/DL Albumin/Globulin Ratio (1.1-2.2) RATIO Plasma Lactate 1.6 (0.6-2.2) MMOL/L Specimen Hemolysis (0-25) Influenza Type A (PCR) (Negative) Influenza Type B (PCR) (Negative) - Radiology Data Chest x-ray: Right lower lobe infiltrate. - EKG Data EKG #1 EKG results narrative: sinus rhythm. 81 bpm. Left bundle branch block. No STEMI. EKG is similar to comparison EKG from September 2017. Disposition Clinical Impression: PNEUMONIA Disposition: To [facility] Acute Care Condition: Stable Time of Disposition: 12:00 (Admit. Dr. Cervantes. ) - Seen By: physician
[2017-11-05] MEDS ORDERED: ALBUTEROL/IPRATROPIUM 2.5mg-0.5mg/3ml NEB AEROSOL ONE (10:11)
[2017-11-05] MEDS: SALINE FLUSH 10ml SYRINGE IVF PRN (10:35)
--- NOTE | 2017-11-05 11:50 | XRay Report ---
Indication: cough Procedure: XR chest 1V: Encounter: Initial Comparison: 09/23/2017 Technique: A single portable AP chest radiograph was obtained. Findings: Lungs and airways: Normal lung volumes. Patchy medial right mid to lower lung zone airspace opacification. Normal pulmonary vasculature. Pleura: No pleural effusion or pneumothorax. Heart and mediastinum: Aortic atherosclerosis. The cardiomediastinal silhouette and great vessels are otherwise within normal limits. Osseous structures and soft tissues: No acute osseous abnormality is seen. Impression: Patchy medial right mid to lower lung zone airspace opacification suspicious for developing pneumonia. .
[2017-11-05] MEDS: LEVOFLOXACIN PB 750 MG/150 ML BAG IV SCH (12:36)
--- NOTE | 2017-11-05 12:50 | History & Physical Report ---
History of Present Illness Date: 11/08/17 Chief complaint: SOB HPI: This 82-year-old woman has been having little improvement with outpatient treatment of her respiratory difficulty. She has had moderately productive cough with discolored sputum, weakness and exercise intolerance beyond her normal 3 L oxygen dependent condition. She cannot remember the names of the antibiotics or steroids that she was recently on. She feels as though she is losing ground however and her family is concerned of her independent living situation now that she is unable to manage her own activities daily living or even toileting at this point Review of Systems All systems PM: 10-point ROS was reviewed, no additional remarkable complaints except - Constitutional Constitutional: Present: as per HPI Past Medical History Hypothyroidism coronary artery disease COPD with 3 L oxygen dependence Surgical History: Tonsillectomy. Cholecystectomy. D&C. Bilateral cataracts. Vein stripping Family History Updates: Reviewed and without contributing history - Social History Smoking status: Former smoker Substance use type: does not use Alcohol intake frequency: does not drink Current residence: Apartment/Private Home Medications Home Medications Medication Instructions Recorded Confirmed Type Levothyroxine Sodium 100 mcg PO DAILY 09/19/17 11/05/17 History Loratadine 10 mg PO DAILY 09/19/17 11/05/17 History Mometasone/Formoterol 100/5 2 puff INH BID 09/19/17 11/05/17 History [DULERA 100/5mcg INHALER] Albuterol HFA Inhaler [Ventolin 1 puff INH Q4-6HR PRN 11/05/17 11/05/17 History Hfa 90 mcg/actuation] Amlodipine [Norvasc] 5 mg PO DAILY 11/05/17 11/05/17 History Lisinopril [Prinivil] 40 mg PO DAILY 11/05/17 11/05/17 History buPROPion HCl [Bupropion HCl Sr] 150 mg PO BID 11/05/17 11/05/17 History Allergies Allergy/AdvReac Type Severity Reaction Status Date / Time cephalexin Allergy Unknown Verified 11/05/17 09:57 dextromethorphan Allergy Unknown Verified 11/05/17 09:57 Exam Vital Signs: Temperature 98.4 F 11/05/17 09:29 Pulse Rate 80 11/05/17 11:00 Respiratory Rate 24 11/05/17 11:00 Blood Pressure 133/74 11/05/17 11:00 Pulse Oximetry 97 11/05/17 11:00 - Constitutional Present: well developed, thin - Routine HEENT Exam Head: Present: normocephalic, atraumatic Eye: Present: EOMI ENT: Present: mucous membranes moist, dentition normal - Routine Neck Exam Present: supple, full ROM - Routine Respiratory Exam Present: accessory muscle use, respiratory distress, rhonchi, diminished air movement. Absent: wheezes, crackles - Routine Cardiovascular Exam Present: RRR. Absent: murmur - Routine Abdominal Exam Present: soft, normoactive bowel sounds, non distended. Absent: tenderness - Routine Extremities Exam Present: normal capillary refill - Routine Skin Exam Present: dry, warm - Routine Neurological Exam Present: alert, oriented X3, CN II-XII intact - Routine Psychiatric Exam Present: normal affect Results - Labs CBC & Chem 7: 11/07/17 05:32 11/07/17 05:32 Assessment and Plan (1) SIRS (systemic inflammatory response syndrome) Status: Acute (2) COPD exacerbation Status: Acute (3) Respiratory failure with hypoxia Status: Chronic (4) Pneumonia Status: Suspected Assessment and Plan: Patient's underlying COPD is certainly in exacerbation. Will give breathing treatments, initially starting with oral steroids at 50 mg, and community acquired pneumonia antibiotics as the chest x-rays equivocal for infiltrate. Patient is on 3 L of supplemental oxygen at home but displays significant living more worker breathing than at baseline DISPOSITION: patient is failed outpatient treatment and will likely need 2 days or more conference therapy to safely discharge - Physician Narrative Narrative: Date: 11/05/17 Time: 1249 Hospital Course Summary Disclaimer: The visit summary below is not to be considered part of the above Progress Note.
[2017-11-05 13:47] VITALS: BMI 18.4
[2017-11-05] MEDS: AZITHROMYCIN IV 500 MG in NS 250ml 250 ML IV SCH (14:44)
[2017-11-05] MEDS: ALBUTEROL/IPRATROPIUM 2.5mg-0.5mg/3ml NEB AEROSOL SCH ×2 (15:54→19:49)
[2017-11-06] MEDS: ALBUTEROL/IPRATROPIUM 2.5mg-0.5mg/3ml NEB AEROSOL SCH ×5 (07:27→19:15)
[2017-11-06] MEDS: BUDESONIDE INH.SOLN 0.5mg/2ml NEB AEROSOL SCH ×2 (11:39→19:15)
[2017-11-06] MEDS: LEVOTHYROXINE 100 MCG TABLET PO SCH (12:51)
[2017-11-06] MEDS: LEVOFLOXACIN PB 750 MG/150 ML BAG IV SCH (12:51)
[2017-11-06] MEDS: AMLODIPINE 5 MG TABLET PO SCH (12:51)
[2017-11-06] MEDS: AZITHROMYCIN IV 500 MG in NS 250ml 250 ML IV SCH (14:52)
--- NOTE | 2017-11-06 16:47 | Progress Note ---
- Date 11/06/17 Subjective: Patient states she is feeling some improvement, being a little less week but still nowhere near where she was before the recent onset of respiratory difficulty. Slept poorly, ate well. Having no significant issues with pain Objective Vital signs: Temperature 98.4 F 11/06/17 15:28 Pulse Rate 93 11/06/17 15:28 Respiratory Rate 24 11/06/17 15:28 Blood Pressure 115/73 11/06/17 15:28 Pulse Oximetry 97 11/06/17 15:28 Height/Weight/BMI: Height 5 ft 3 in Weight 48 kg Body Mass Index 18.4 - Constitutional Present: well nourished, well developed - Routine HEENT Exam Eye: Present: EOMI ENT: Present: mucous membranes moist, dentition normal - Routine Respiratory Exam Present: CTA bilaterally, wheezes - Routine Cardiovascular Exam Present: RRR. Absent: murmur - Routine Abdominal Exam Present: soft, normoactive bowel sounds, non distended. Absent: tenderness - Routine Extremities Exam Present: normal capillary refill - Routine Skin Exam Present: dry, warm - Routine Neurological Exam Present: alert, oriented X3, CN II-XII intact - Routine Lymphatic Exam Lymphatic: Absent: adenopathy - Routine Psychiatric Exam Present: normal affect Results - Labs CBC & Chem 7: 11/05/17 10:37 11/05/17 10:37 Assessment and Plan (1) SIRS (systemic inflammatory response syndrome) Current visit: Yes Status: Acute (2) COPD exacerbation Current visit: No Status: Acute (3) Respiratory failure with hypoxia Current visit: No Status: Chronic (4) Pneumonia Current visit: Yes Status: Suspected Assessment and Plan: Patient is making minimal improvement but appears to require another day or 2 of medication. Will continue antibiotics. I have increased the dosage of Solu- Medrol in hopes of shortening course stay. She already has supplemental home oxygen. Will attempt to get her to mobilize tomorrow as she shows further improvement. - Physician Narrative Narrative: Date: 11/06/17 Time: 1645 Hospital Course Summary Disclaimer: The visit summary below is not to be considered part of the above Progress Note.
[2017-11-06] MEDS: METHYLPREDNISOLONE SOD SUCC 125mg/2ml INJECTION IVP SCH (20:33)
[2017-11-06] MEDS ORDERED: GUAIFENESIN/CODEINE 5ml ORAL LIQUID PO PRN (22:39)
[2017-11-06] MEDS: SALINE FLUSH 10ml SYRINGE IVF PRN (22:57)
[2017-11-07] MEDS: LEVOTHYROXINE 100 MCG TABLET PO SCH (05:31)
[2017-11-07] MEDS: BUDESONIDE INH.SOLN 0.5mg/2ml NEB AEROSOL SCH (07:11)
[2017-11-07] MEDS: ALBUTEROL/IPRATROPIUM 2.5mg-0.5mg/3ml NEB AEROSOL SCH ×3 (07:11→15:52)
[2017-11-07] MEDS ORDERED: LISINOPRIL 40 MG TABLET PO SCH (09:00)
[2017-11-07] MEDS: AMLODIPINE 5 MG TABLET PO SCH (09:04)
[2017-11-07] MEDS: METHYLPREDNISOLONE SOD SUCC 125mg/2ml INJECTION IVP SCH (09:05)
--- NOTE | 2017-11-07 10:19 | Progress Note ---
- Date 11/07/17 Subjective: Tiffany was seen after breakfast. She feels like she's slowly improving and her breathing is getting better. She isn't coughing as much but when she does cough it is more productive. She feels weak overall but denies dizziness. She's noticed some swelling to her ankles, which is atypical. She denies abdominal pain or nausea. Objective Vital signs: Temperature 97.3 F 11/07/17 07:41 Pulse Rate 92 11/07/17 07:41 Respiratory Rate 20 11/07/17 07:41 Blood Pressure 130/73 11/07/17 07:41 Pulse Oximetry 96 11/07/17 07:41 Height/Weight/BMI: Height 1.6 m Weight 48.5 kg Body Mass Index 18.4 - Constitutional Present: no acute distress, well nourished, well developed, thin - Routine HEENT Exam Head: Present: normocephalic Eye: Absent: conjunctival icterus, scleral injection ENT: Absent: oropharynx clear (thrush) - Routine Respiratory Exam Present: decreased breath sounds - Routine Cardiovascular Exam Present: RRR, S1, S2 - Routine Abdominal Exam Present: soft, normoactive bowel sounds, non distended, non tender - Routine Extremities Exam Present: edema (edema around ankles), pulses intact. Absent: calf tenderness - Routine Skin Exam Present: intact, dry, warm - Routine Neurological Exam Present: alert, oriented X3, normal speech - Routine Psychiatric Exam Present: normal affect, normal thought process, cooperative Results - Labs CBC & Chem 7: 11/07/17 05:32 11/07/17 05:32 Assessment and Plan (1) COPD exacerbation Current visit: No Status: Acute (2) Respiratory failure with hypoxia Current visit: No Status: Chronic (3) Pneumonia Current visit: Yes Status: Suspected (4) SIRS (systemic inflammatory response syndrome) Current visit: Yes Status: Acute Assessment and Plan: IMPRESSION Pneumonia COPD exacerbation HTN hypothyroidism thrush PLAN Continue Levaquin and azithro for pneumonia, day #3. Cont with neb treatments. Will discuss steroid tapering with attending - currently on Solu-Medrol 125 mg IV Q12h Consult PT/OT d/t weakness and initial family concerns about completing ADLs Start Nystatin for thrush. Addendum by Dr. Cervantes: Steroids were only increased to this dose yesterday and so would not require more than routine taper home. She appears to be doing fairly well and is anxious to return home. Family has overall concerns of her gradual decline in have discussed placing her on hospice care but at this time appears to be fit to return home with home health. She appears to be at her baseline as she does use 3 L oxygen at home. Will continue her on tapering steroid and an antibiotic for the next 7 days and discharge back to the care of the family who is willing to accept. She is not returning to her own independent residence but family care which is where she has been for the last month or more. DVT Prophylaxis: SCD's Resuscitation Status: Full Code - Physician Narrative Narrative: Date: 11/07/17 Time: 1016 Hospital Course Summary Disclaimer: The visit summary below is not to be considered part of the above Progress Note. Hospital Course: 11/06 Patient is making minimal improvement but appears to require another day or 2 of medication. Will continue antibiotics. I have increased the dosage of Solu- Medrol in hopes of shortening course stay. She already has supplemental home oxygen. Will attempt to get her to mobilize tomorrow as she shows further improvement. 11/07 Continue Levaquin and azithro for pneumonia, day #3. Cont with neb treatments. Will discuss steroid tapering with attending - currently on Solu-Medrol 125 mg IV Q12h Consult PT/OT d/t weakness and initial family concerns about completing ADLs Start Nystatin for thrush.
[2017-11-07] MEDS ORDERED: SALINE FLUSH 10ml SYRINGE IVF PRN (11:07)
[2017-11-07] MEDS ORDERED: NS FLUSH BAG 500ml IV PRN (11:07)
[2017-11-07] MEDS: LEVOFLOXACIN PB 750 MG/150 ML BAG IV SCH (11:09)
[2017-11-07] MEDS: AZITHROMYCIN IV 500 MG in NS 250ml 250 ML IV SCH (13:20)
[2017-11-07] MEDS: NYSTATIN 500,000 units/5 ml ORAL LIQUID PO SCH ×2 (13:21→17:37)
[2017-11-07 15:00] VITALS: BP 106/64; PULSE 94; TEMP 96.9
--- NOTE | 2017-11-07 15:15 | Discharge Summary ---
Discharge Information Date of admission: 11/05/17 12:32 Anticipated date of discharge: 11/07/17 Attending Physician: Jesse Cervantes MD Primary care physician: Reba Harris MD Consults: 11/05/17 13:06 Infection Control Consult [CONS] Routine Comment: 11/07/17 13:35 Case Management Consult [CONS] Routine Reason For Exam: - Discharge Diagnosis (1) COPD exacerbation Status: Acute (2) Respiratory failure with hypoxia Status: Chronic (3) Pneumonia Status: Suspected (4) SIRS (systemic inflammatory response syndrome) Status: Acute - Laboratory Labs: 11/07/17 05:32 11/07/17 05:32 History of Present Illness HPI: This 82-year-old woman has been having little improvement with outpatient treatment of her respiratory difficulty. She has had moderately productive cough with discolored sputum, weakness and exercise intolerance beyond her normal 3 L oxygen dependent condition. She cannot remember the names of the antibiotics or steroids that she was recently on. She feels as though she is losing ground however and her family is concerned of her independent living situation now that she is unable to manage her own activities daily living or even toileting at this point Objective Vital signs: Temperature 96.9 F 11/07/17 14:58 Pulse Rate 94 11/07/17 14:58 Respiratory Rate 16 11/07/17 14:58 Blood Pressure 106/64 11/07/17 14:58 Pulse Oximetry 97 11/07/17 14:58 Height/Weight/BMI: Height 5 ft 3 in Weight 48.5 kg Body Mass Index 18.4 Hospital Course This is a general summary of the patient's hospital course. For more details refer to the complete medical record. Hospital course: Pneumonia COPD exacerbation HTN hypothyroidism thrush PLAN Continue Levaquin and azithro for pneumonia, day #3. Cont with neb treatments. Will discuss steroid tapering with attending - currently on Solu-Medrol 125 mg IV Q12h Consult PT/OT d/t weakness and initial family concerns about completing ADLs Start Nystatin for thrush. Addendum by Dr. Cervantes: Steroids were only increased to this dose yesterday and so would not require more than routine taper home. She appears to be doing fairly well and is anxious to return home. Family has overall concerns of her gradual decline in have discussed placing her on hospice care but at this time appears to be fit to return home with home health. She appears to be at her baseline as she does use 3 L oxygen at home. Will continue her on tapering steroid and an antibiotic for the next 7 days and discharge back to the care of the family who is willing to accept. She is not returning to her own independent residence but family care which is where she has been for the last month or more. 11/06 Patient is making minimal improvement but appears to require another day or 2 of medication. Will continue antibiotics. I have increased the dosage of Solu- Medrol in hopes of shortening course stay. She already has supplemental home oxygen. Will attempt to get her to mobilize tomorrow as she shows further improvement. 11/07 Continue Levaquin and azithro for pneumonia, day #3. Cont with neb treatments. Will discuss steroid tapering with attending - currently on Solu-Medrol 125 mg IV Q12h Consult PT/OT d/t weakness and initial family concerns about completing ADLs Start Nystatin for thrush. Discharge Plan - Discharge Disposition *Condition: Stable Reason For Visit (Visit label in EMR): pneumonia - Discharge Medications *Discharge Medications: New levoFLOXacin [Levofloxacin] 750 mg PO DAILY #7 tab methylPREDNISolone [Medrol] 4 mg PO DAILY #26 tab.ds.pk Continue Mometasone/Formoterol 100/5 [DULERA 100/5mcg INHALER] 2 puff INH BID Levothyroxine Sodium 100 mcg PO DAILY Loratadine 10 mg PO DAILY Guaifenesin [Mucinex] 400 mg PO TID tab Guaifenesin/Codeine Phosphate [Guaifenesin-Codeine Syrup] 10 ml PO Q6H PRN # 200 ml PRN Reason: Cough /Congestion Lisinopril [Prinivil] 40 mg PO DAILY buPROPion HCl [Bupropion HCl Sr] 150 mg PO BID Amlodipine [Norvasc] 5 mg PO DAILY Albuterol HFA Inhaler [Ventolin Hfa 90 mcg/actuation] 1 puff INH Q4-6HR PRN PRN Reason: Shortness Of Air - Discharge Packet/Instructions *Diet: as prior *Activity: as tolerated *Pain Management/Treatment: Your routine pain medications *Wound Care: None *Expected Signs/Symptoms: Improving respiratory function *Notify Physician if: You develop a fever or breathing becomes more difficult *During Business Hours Contact: Your regular doctor *After Business Hours Contact: The emergency room *Pending Lab/Results: No Pending Lab - Referrals/Follow Up - Patient Handouts Patient Handouts: COPD (Chronic Obstructive Pulmonary Disease) (DC), Pneumonia (GEN) - Dismissal Complete Discharge Instructions are:: Complete Physician Narrative - Narrative Attestation Narrative: Date: 11/07/17 Time: 8923
[2017-11-07 15:58] VITALS: RESP 18; O2SAT 100
[2017-11-07] MEDS ORDERED: BuPROPion SR 150mg (12HR) TABLET PO SCH (21:00)
[2017-11-08] MEDS ORDERED: LORATADINE 10 MG TABLET PO SCH (06:30)
== END 2017-11-07 18:35 | disposition home health service (06) | DRG 871 ==
LOC: ED 09:27 → MED 12:32
PROVIDERS: ADMIT Family Medicine; ATTEND Family Medicine